=== PATIENT | male | born 1965 | race Caucasian/White ===

== ENCOUNTER 2019-10-04 16:11 | Inpatient (IN) ==
--- NOTE | 2019-10-04 16:43 | Emergency Department Note ---
History of Present Illness General Chief complaint: Shortness of Breath/Dyspnea Stated complaint: SOB Time Seen by Provider: 10/04/19 16:17 Source: patient Mode of arrival: ambulatory Limitations: no limitations History of Present Illness Provider complaint: shortness of breath, left chest pain Onset (ago): week(s) Location: chest Radiation: non-radiation Severity: moderate Pain Consistency: + colicky Current Pain Intensity: 0 Quality: + dull Relieved By: + rest Exacerbated By: + movement and + other (supine position) Associated symptoms: no cough, no fever/chills, no nausea/vomiting and no syncope Treatments prior to arrival: none This is a 54-year-old male who presents with approximately 6 weeks of worsening shortness of breath and left chest wall pressure. Patient states he is most suspicious for a PE as he has had these previously and is currently not taking his previously prescribed anticoagulation. Patient states in 2016 he stopped taking all of his medications as he could no longer afford them once he was no longer working and lost his health insurance. States he does take aspirin daily to try and help prevent recurrent blood clots. Patient states he has had both DVT and PEs previously. Patient states he is also noted left lower extremity edema as well as pain to the distal posterior left lower extremity. Patient denies any recent falls or trauma. No other change in diet. Patient did recently quit smoking in July per his report. Patient also admits to seasonal allergies which contribute to cough. Patient denies any change in sputum or frequency of cough. Denies fevers or chills. States his symptoms are worse with exertion or lying flat. States when he lays flat he feels like he is "drowning" and feels a sense of pressure across his chest. Patient states when sitting upright he does not have acute pain in the left chest unless it is being palpated. Patient denies any known exposure to a coronavirus positive individual. Pt seen during a time of high acuity and national emergency pandemic while wearing PPE. Home Medications Home Medications Medication Instructions Recorded Confirmed Type Centrum Silver Men 1 tab PO DAILY 10/04/19 10/04/19 History fexofenadine [Corinne Allergy] 180 mg PO DAILY 10/04/19 10/04/19 History amlodipine [Norvasc] 5 mg PO QAM 30 Days #30 tab 10/06/19 Rx apixaban [Eliquis] 5 mg PO BID #60 tab 10/06/19 Rx atorvastatin [Lipitor] 10 mg PO DAILY #30 tab 10/06/19 Rx losartan 25 mg PO QAM 30 Days #30 tab 10/06/19 Rx oxycodone 5 mg PO Q4 PRN #12 tab 10/06/19 Rx Allergies Allergy/AdvReac Type Severity Reaction Status Date / Time bee venom protein (honey bee) Allergy Severe Anaphylaxis Verified 10/04/19 17:03 Penicillins Allergy Severe SEE Verified 10/04/19 17:03 COMMENT-HAPPENED A CHILD pollen extracts Allergy Severe CONGESTION, Verified 10/04/19 17:03 SOB OPIOIDS AdvReac Severe VIOLENT Uncoded 10/04/19 17:03 VOMITTING-IF SMALL DOSE SOMETIMES OK. 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 and A total of 10 systems reviewed and were otherwise negative Physical Exam Vital Signs Vital Signs - 24 hr 10/04/19 16:15 10/04/19 16:23 10/04/19 17:28 Temperature 37.3 C Temperature Source Oral Pulse Rate 53 L 53 L 48 L Pulse Rate [Apical] Pulse Rate from SpO2 Sensor 53 L Pulse Rhythm Regular Respiratory Rate 25 H 16 14 Respiratory Effort / Characteristics Non-Labored Spontaneous Respiratory Depth Normal Respiratory Pattern Regular Blood Pressure 181/68 H 181/68 H 171/71 H Blood Pressure [Right Arm] Blood Pressure Mean 115 105 98 Blood Pressure Mean [Right Arm] Pulse Oximetry 96 96 96 Oxygen Delivery Method Room Air Room Air Room Air Sepsis Recent Fever Within 48 Hours No Sepsis New/Unexplained Change in Mental Status No Sepsis Action Taken by Nursing No Action Required 10/04/19 18:51 10/04/19 20:21 10/04/19 21:02 Temperature Temperature Source Pulse Rate 50 L Pulse Rate [Apical] 45 L 45 L Pulse Rate from SpO2 Sensor 50 L Pulse Rhythm Respiratory Rate 18 14 20 Respiratory Effort / Characteristics Non-Labored Non-Labored Spontaneous Respiratory Depth Normal Respiratory Pattern Blood Pressure 213/77 H Blood Pressure [Right Arm] 154/59 H Blood Pressure Mean 115 Blood Pressure Mean [Right Arm] 90 Pulse Oximetry 95 99 98 Oxygen Delivery Method Room Air Room Air Sepsis Recent Fever Within 48 Hours Sepsis New/Unexplained Change in Mental Status Sepsis Action Taken by Nursing 10/04/19 21:03 10/04/19 21:09 10/04/19 21:30 Temperature Temperature Source Pulse Rate 49 L 64 Pulse Rate [Apical] Pulse Rate from SpO2 Sensor 49 L 47 L Pulse Rhythm Respiratory Rate 20 20 Respiratory Effort / Characteristics Respiratory Depth Respiratory Pattern Blood Pressure Blood Pressure [Right Arm] Blood Pressure Mean Blood Pressure Mean [Right Arm] Pulse Oximetry 100 100 Oxygen Delivery Method Room Air Sepsis Recent Fever Within 48 Hours Sepsis New/Unexplained Change in Mental Status Sepsis Action Taken by Nursing 10/04/19 23:15 Temperature Temperature Source Pulse Rate Pulse Rate [Apical] 46 L Pulse Rate from SpO2 Sensor Pulse Rhythm Respiratory Rate 20 Respiratory Effort / Characteristics Respiratory Depth Respiratory Pattern Blood Pressure Blood Pressure [Right Arm] 171/88 H Blood Pressure Mean Blood Pressure Mean [Right Arm] 115 Pulse Oximetry 96 Oxygen Delivery Method Room Air Sepsis Recent Fever Within 48 Hours Sepsis New/Unexplained Change in Mental Status Sepsis Action Taken by Nursing GENERAL: alert, well appearing, well nourished, no distress, non-toxic, morbidly obese EYE EXAM: normal conjunctiva, PERRL and EOM's grossly intact OROPHARYNX: no exudate, no erythema, lips, buccal mucosa, and tongue normal and mucous membranes are moist NECK: supple, no nuchal rigidity, no adenopathy, non-tender LUNGS: Clear but decreased to auscultation. Normal chest wall mechanics, no w/r/r HEART: no murmurs, S1 normal and S2 normal, pain with palpation along left chest wall, no crepitus, no ecchymosis or overlying rash ABDOMEN: abdomen soft, non-tender, normo-active bowel sounds, no masses, no rebound or guarding. BACK: Back is symmetrical on inspection and there is no deformity, no midline tenderness, no CVA tenderness. SKIN: no rashes and no bruising UPPER EXTREMITIES: upper extremities are grossly normal. FROM, nml pulses b/l. LOWER EXTREMITIES: Bilateral lower extremity pitting edema, left greater than right. FROM, nml pulses b/l. Pain with palpation over the distal aspect of the Achilles tendon just superior to the calcaneus, no overlying erythema or ecchymosis, no petechiae NEURO EXAM: Normal sensorium, cranial nerves II-XII grossly intact, normal speech, no gross weakness of arms, no gross weakness of legs. Gross sensation intact. Course Course 2021: Patient updated on results. Patient states he does still feel pressure with lying flat when he was in the CT scanner and this makes him more tachypneic. Patient states he has tried to get up and use the restroom and with exertion he feels more shortness of breath and increased pressure. I also discussed his bradycardia. Pt states his HR according to his apple watch is usually in the 70's/80's. No hx of dysrhythmia. I attempted to print out rhythm strip to evaluate for heart block but strip I had wasn't convincing. 6: Patient states no change after DuoNeb. Patient states he still felt markedly tachypneic with increased pressure with the ambulatory pulse ox trial. Patient was not hypoxic during this event. 2250: Case discussed with Dr. Calixto for additional evaluation. Administered Medications Discontinued Medications Al Hydrox/Mg Hydrox/Simethicone () 1 dose PO ONE ONE Stop: 10/04/19 23:39 Last Admin: 10/04/19 23:58 Dose: 1 dose Documented by: [id number] Albuterol (Duoneb) 3 ml NEB NOW STA Stop: 10/04/19 20:04 Last Admin: 10/04/19 20:20 Dose: 3 ml Documented by: [id number] Amlodipine Besylate (Norvasc) 5 mg PO NOW ONE Stop: 10/05/19 17:01 Last Admin: 10/05/19 17:17 Dose: 5 mg Documented by: [id number] Amlodipine [facility] ([facility]asc) [facility] [place] Stop: 11/05/19 08:59 Last Admin: 10/06/19 08:00 Dose: 5 mg Documented by: [id number] Bacitracin (Bacitracin) Confirm Administered Dose 50,000 units .ROUTE .STK-MED ONE Stop: 10/05/19 12:42 Last Admin: 10/05/19 13:30 Dose: 50,000 units Documented by: [id number] Bupivacaine HCl (Sensorcaine 0.25% Inj) Confirm Administered Dose 30 ml .ROUTE .STK-MED ONE Stop: 10/05/19 12:42 Last Admin: 10/05/19 13:31 Dose: 30 ml Documented by: [id number] Bupivacaine HCl (Sensorcaine 0.25% Inj) Confirm Administered Dose 30 ml .ROUTE .ST-MED ONE Stop: 10/05/19 13:32 Last Admin: 10/05/19 13:43 Dose: 30 ml Documented by: [id number] Cefazolin Sodium (Ancef) Confirm Administered Dose 3,000 mg .ROUTE .STK-MED ONE Stop: 10/05/19 13:07 Last Admin: 10/05/19 13:31 Dose: 3,000 mg Documented by: [id number] Clindamycin Phosphate (Cleocin) Confirm Administered Dose 600 mg .ROUTE .STK-MED ONE Stop: 10/05/19 12:56 Last Admin: 10/05/19 13:31 Dose: Not Given Documented by: [id number] Fentanyl Citrate (Fentanyl Citrate) Confirm Administered Dose 100 mcg .ROUTE .[facility]-MED ONE Stop: 10/05/19 13:06 Last Admin: 10/05/19 13:31 Dose: 100 mcg Documented by: [id number] Fentanyl Citrate (Fentanyl Citrate) Confirm Administered Dose 100 mcg .ROUTE .[facility]-MED ONE Stop: 10/05/19 13:34 Last Increment: 10/05/19 13:54 Dose: 75 mcg Documented by: [id number] Heparin Sodium/Dextrose (Heparin Sodium/Dextrose) Confirm Administered Dose 25,000 units IV .[facility]-MED ONE Stop: 10/05/19 00:20 Last Admin: 10/05/19 00:21 Dose: 2,100 units Documented by: [id number] Cosigned by: [id number] Hydralazine HCl (Hydralazine Hcl) 10 mg IV NOW STA Stop: 10/04/19 22:56 Last Admin: 10/04/19 23:14 Dose: 10 mg Documented by: [id number] Heparin Sodium/Dextrose (Heparin Sodium/Dextrose) 25,000 units in 500 mls @ 0 mls/hr IV .Q0M KRISHAN; Protocol Stop: 11/04/19 00:59 Last Admin: 10/05/19 19:49 Dose: Not Given Documented by: [id number] Titration: 10/05/19 12:56 Dose: 0 units/hr, 0 mls/hr Documented by: [id number] Cosigned by: [id number] Titration: 10/05/19 12:56 Dose: 0 units/hr, 0 mls/hr Documented by: [id number] Cosigned by: [id number] Admin: 10/05/19 11:21 Dose: 2,350 units/hr, 47 mls/hr Documented by: [id number] Cosigned by: [id number] Titration: 10/05/19 11:21 Dose: 2,350 units/hr, 47 mls/hr Documented by: [id number] Cosigned by: [id number] Titration: 10/05/19 04:16 Dose: 2,350 units/hr, 47 mls/hr Documented by: [id number] Cosigned by: [id number] Admin: 10/05/19 01:41 Dose: 2,100 units/hr, 42 mls/hr Documented by: [id number] Cosigned by: [id number] Pantoprazole Sodium 40 mg/ (Syringe) 10 mls @ 5 mls/min IV DAILY@1100 KRISHAN Stop: 11/04/19 10:59 Last Admin: 10/06/19 11:18 Dose: 5 mls/min Documented by: [id number] Admin: 10/05/19 11:13 Dose: 5 mls/min Documented by: [id number] Heparin Sodium (Porcine) 5,000 (units/ Syringe) 5 mls @ 10 mls/min IV ONE ONE Stop: 10/05/19 04:16 Last Admin: 10/05/19 04:47 Dose: 10 mls/min Documented by: [id number] Cosigned by: [id number] Cefazolin Sodium (Ancef 1000mg) 1,000 mg in 7.5 mls @ 2.5 mls/min IV Q8H KRISHAN; Protocol Stop: 10/06/19 21:44 Last Admin: 10/06/19 15:25 Dose: 2.5 mls/min Documented by: [id number] Admin: 10/06/19 05:24 Dose: 2.5 mls/min Documented by: [id number] Admin: 10/05/19 20:58 Dose: 2.5 mls/min Documented by: [id number] Ioversol (Optiray 320 125ml) 119 ml IV ONCE PRN PRN Reason: Interaction Checking Stop: 10/08/19 19:22 Last Admin: 10/04/19 19:26 Dose: 119 ml Documented by: [id number] Lidocaine HCl (Xylocaine 1% (Local)) Confirm Administered Dose 20 ml .ROUTE .STK-MED ONE Stop: 10/05/19 12:42 Last Admin: 10/05/19 13:31 Dose: 20 ml Documented by: [id number] Lidocaine HCl (Xylocaine 1% (Local)) Confirm Administered Dose 20 ml .ROUTE .STK-MED ONE Stop: 10/05/19 13:32 Last Admin: 10/05/19 13:43 Dose: 20 ml Documented by: [id number] Losartan Potassium (Cozaar) 25 mg PO QAM KRISHAN Stop: 11/05/19 10:29 Last Admin: 10/06/19 11:17 Dose: 25 mg Documented by: [id number] Midazolam HCl (Versed) Confirm Administered Dose 5 mg .ROUTE .STK-MED ONE Stop: 10/05/19 13:06 Last Admin: 10/05/19 13:31 Dose: 5 mg Documented by: [id number] Midazolam HCl (Versed) Confirm Administered Dose 5 mg .ROUTE .STK-MED ONE Stop: 10/05/19 13:34 Last Admin: 10/05/19 13:59 Dose: Not Given Documented by: [id number] Oxycodone HCl (Roxicodone Immediate Rel) 5 mg PO Q4 PRN PRN Reason: Pain Stop: 10/19/19 16:44 Last Admin: 10/06/19 11:18 Dose: 5 mg Documented by: [id number] Admin: 10/06/19 04:04 Dose: 5 mg Documented by: [id number] Admin: 10/05/19 22:52 Dose: 5 mg Documented by: [id number] Perflutren Lipid Microsphere (Definity) 2 ml IV ONCE ONE Stop: 10/05/19 08:11 Last Admin: 10/05/19 08:10 Dose: 2 ml Documented by: [id number] Medical Decision Making Differential Diagnosis Differential diagnoses includes but is not limited to pneumonia, bronchitis, COPD/Asthma exacerbation, pneumothorax, pulmonary embolism, congestive heart failure, acute coronary syndrome Medical Records Attestation: I reviewed the patient's medical records. Home Medications Current Medication List: was personally reviewed by me Laboratory Data Attestation: I reviewed the patient's lab results. Result diagrams: 10/05/19 03:46 10/06/19 07:00 Lab Results 10/04/19 10/04/19 10/04/19 Range/Units 16:53 16:53 16:53 WBC 7.68 (4.8-10.8) K/uL RBC 4.68 L (4.7-6.1) M/uL Hgb 14.2 (14.0-18.0) g/dL Hct 42.7 (42-52) % MCV 91.2 (80-100) fL MCH 30.3 (25-34) pg MCHC 33.3 (32-36) g/dL RDW Std Deviation 44.2 (36.4-46.3) fL RDW Coeff of Karen 13.4 (11.5-14.5) % Plt Count 226 (130-400) K/uL MPV 10.6 H (7.4-10.4) fL Immature Gran % (Auto) 0.8 % Neut % (Auto) 74.2 % Lymph % (Auto) 14.2 % Hardin % (Auto) 8.2 % Eos % (Auto) 2.1 % Baso % (Auto) 0.5 % Immature Gran # (Auto) 0.06 H (0.00-0.02) K/uL Neut # (Auto) 5.70 (1.4-6.5) K/uL Lymph # (Auto) 1.09 L (1.2-3.4) K/uL Hardin # (Auto) 0.63 H (0.11-0.59) K/uL Eos # (Auto) 0.16 (0-0.5) K/uL Baso # (Auto) 0.04 (0-0.2) K/uL APTT (21.0-31.0) Seconds PTT Ratio D-Dimer 750 H* (0-500) ug/L FEU Sodium 144 (136-145) mmol/L Potassium 4.1 (3.5-5.1) mmol/L Chloride 110 H (98-107) mmol/L Carbon Dioxide 25 (21-32) mmol/L Anion Gap 9.0 (3-11) BUN 16 (7-18) mg/dl Creatinine 1.33 (0.6-1.4) mg/dl Est Cr Clr Drug Dosing 107.5 ml/min Est GFR ( Amer) 70.7 Est GFR (Non-Af Amer) 61.0 BUN/Creatinine Ratio 12.2 (10-20) Glucose 123 H (70-99) mg/dl Estimat Average Glucose mg/dl Hemoglobin A1c (4.5-5.6) % Calcium 8.4 L (8.5-10.1) mg/dl Magnesium 1.9 (1.8-2.4) mg/dl Total Bilirubin 0.4 (0.2-1) mg/dl AST 13 L (15-37) U/L ALT 31 (12-78) U/L Alkaline Phosphatase 69 (45-117) U/L Troponin I < 0.015 (0-0.045) ng/ml NT-Pro-B Natriuret Pep 1283 H (0-900) pg/ml Total Protein 6.7 (6.4-8.2) gm/dl Albumin 3.2 L (3.4-5.0) gm/dl Globulin 3.5 (2.5-4.0) gm/dl Albumin/Globulin Ratio 0.9 (0.9-2) Triglycerides (0-150) mg/dl Cholesterol (0-200) mg/dl LDL Cholesterol, Calc mg/dl VLDL Cholesterol, Calc mg/dl HDL Cholesterol mg/dl Cholesterol/HDL Ratio Lipase 148 (73-393) U/L Salicylates (2.8-20) mg/dl Lyme Disease IgG Ab (Negative) Lyme Disease IgM Ab (Negative) 10/04/19 10/04/19 10/05/19 Range/Units 19:50 23:40 03:46 WBC 9.89 (4.8-10.8) K/uL RBC 4.70 (4.7-6.1) M/uL Hgb 14.2 (14.0-18.0) g/dL Hct 42.6 (42-52) % MCV 90.6 (80-100) fL MCH 30.2 (25-34) pg MCHC 33.3 (32-36) g/dL RDW Std Deviation 44.3 (36.4-46.3) fL RDW Coeff of Karen 13.5 (11.5-14.5) % Plt Count 252 (130-400) K/uL MPV 10.8 H (7.4-10.4) fL Immature Gran % (Auto) 0.5 % Neut % (Auto) 69.7 % Lymph % (Auto) 20.7 % Hardin % (Auto) 7.1 % Eos % (Auto) 1.5 % Baso % (Auto) 0.5 % Immature Gran # (Auto) 0.05 H (0.00-0.02) K/uL Neut # (Auto) 6.89 H (1.4-6.5) K/uL Lymph # (Auto) 2.05 (1.2-3.4) K/uL Hardin # (Auto) 0.70 H (0.11-0.59) K/uL Eos # (Auto) 0.15 (0-0.5) K/uL Baso # (Auto) 0.05 (0-0.2) K/uL APTT (21.0-31.0) Seconds PTT Ratio D-Dimer (0-500) ug/L FEU Sodium (136-145) mmol/L Potassium (3.5-5.1) mmol/L Chloride (98-107) mmol/L Carbon Dioxide (21-32) mmol/L Anion Gap (3-11) BUN (7-18) mg/dl Creatinine (0.6-1.4) mg/dl Est Cr Clr Drug Dosing ml/min Est GFR ( Amer) Est GFR (Non-Af Amer) BUN/Creatinine Ratio (10-20) Glucose (70-99) mg/dl Estimat Average Glucose mg/dl Hemoglobin A1c (4.5-5.6) % Calcium (8.5-10.1) mg/dl Magnesium (1.8-2.4) mg/dl Total Bilirubin (0.2-1) mg/dl AST (15-37) U/L ALT (12-78) U/L Alkaline Phosphatase (45-117) U/L Troponin I < 0.015 (0-0.045) ng/ml NT-Pro-B Natriuret Pep (0-900) pg/ml Total Protein (6.4-8.2) gm/dl Albumin (3.4-5.0) gm/dl Globulin (2.5-4.0) gm/dl Albumin/Globulin Ratio (0.9-2) Triglycerides (0-150) mg/dl Cholesterol (0-200) mg/dl LDL Cholesterol, Calc mg/dl VLDL Cholesterol, Calc mg/dl HDL Cholesterol mg/dl Cholesterol/HDL Ratio Lipase (73-393) U/L Salicylates < 1.7 L (2.8-20) mg/dl Lyme Disease IgG Ab (Negative) Lyme Disease IgM Ab (Negative) 10/05/19 10/05/19 10/05/19 Range/Units 03:46 03:46 03:46 WBC (4.8-10.8) K/uL RBC (4.7-6.1) M/uL Hgb (14.0-18.0) g/dL Hct (42-52) % MCV (80-100) fL MCH (25-34) pg MCHC (32-36) g/dL RDW Std Deviation (36.4-46.3) fL RDW Coeff of Karen (11.5-14.5) % Plt Count (130-400) K/uL MPV (7.4-10.4) fL Immature Gran % (Auto) % Neut % (Auto) % Lymph % (Auto) % Hardin % (Auto) % Eos % (Auto) % Baso % (Auto) % Immature Gran # (Auto) (0.00-0.02) K/uL Neut # (Auto) (1.4-6.5) K/uL Lymph # (Auto) (1.2-3.4) K/uL Hardin # (Auto) (0.11-0.59) K/uL Eos # (Auto) (0-0.5) K/uL Baso # (Auto) (0-0.2) K/uL APTT 42.9 H (21.0-31.0) Seconds PTT Ratio 1.5 D-Dimer (0-500) ug/L FEU Sodium 143 (136-145) mmol/L Potassium (3.5-5.1) mmol/L Chloride 109 H (98-107) mmol/L Carbon Dioxide 27 (21-32) mmol/L Anion Gap 7.0 (3-11) BUN 12 (7-18) mg/dl Creatinine 1.19 (0.6-1.4) mg/dl Est Cr Clr Drug Dosing 119.4 ml/min Est GFR ( Amer) 80.9 Est GFR (Non-Af Amer) 69.8 BUN/Creatinine Ratio 10.3 (10-20) Glucose 110 H (70-99) mg/dl Estimat Average Glucose 143 mg/dl Hemoglobin A1c 6.6 H (4.5-5.6) % Calcium 8.8 (8.5-10.1) mg/dl Magnesium (1.8-2.4) mg/dl Total Bilirubin (0.2-1) mg/dl AST (15-37) U/L ALT (12-78) U/L Alkaline Phosphatase (45-117) U/L Troponin I (0-0.045) ng/ml NT-Pro-B Natriuret Pep (0-900) pg/ml Total Protein (6.4-8.2) gm/dl Albumin (3.4-5.0) gm/dl Globulin (2.5-4.0) gm/dl Albumin/Globulin Ratio (0.9-2) Triglycerides 163 H (0-150) mg/dl Cholesterol 230 H (0-200) mg/dl LDL Cholesterol, Calc 164 mg/dl VLDL Cholesterol, Calc 33 mg/dl HDL Cholesterol 33 mg/dl Cholesterol/HDL Ratio 7 Lipase (73-393) U/L Salicylates (2.8-20) mg/dl Lyme Disease IgG Ab (Negative) Lyme Disease IgM Ab (Negative) 10/05/19 10/05/19 10/05/19 Range/Units 05:57 10:44 10:44 WBC (4.8-10.8) K/uL RBC (4.7-6.1) M/uL Hgb (14.0-18.0) g/dL Hct (42-52) % MCV (80-100) fL MCH (25-34) pg MCHC (32-36) g/dL RDW Std Deviation (36.4-46.3) fL RDW Coeff of Karen (11.5-14.5) % Plt Count (130-400) K/uL MPV (7.4-10.4) fL Immature Gran % (Auto) % Neut % (Auto) % Lymph % (Auto) % Hardin % (Auto) % Eos % (Auto) % Baso % (Auto) % Immature Gran # (Auto) (0.00-0.02) K/uL Neut # (Auto) (1.4-6.5) K/uL Lymph # (Auto) (1.2-3.4) K/uL Hardin # (Auto) (0.11-0.59) K/uL Eos # (Auto) (0-0.5) K/uL Baso # (Auto) (0-0.2) K/uL APTT 58.8 H* (21.0-31.0) Seconds PTT Ratio 2.1 D-Dimer (0-500) ug/L FEU Sodium (136-145) mmol/L Potassium 3.9 (3.5-5.1) mmol/L Chloride (98-107) mmol/L Carbon Dioxide (21-32) mmol/L Anion Gap (3-11) BUN (7-18) mg/dl Creatinine (0.6-1.4) mg/dl Est Cr Clr Drug Dosing ml/min Est GFR ( Amer) Est GFR (Non-Af Amer) BUN/Creatinine Ratio (10-20) Glucose (70-99) mg/dl Estimat Average Glucose mg/dl Hemoglobin A1c (4.5-5.6) % Calcium (8.5-10.1) mg/dl Magnesium (1.8-2.4) mg/dl Total Bilirubin (0.2-1) mg/dl AST (15-37) U/L ALT (12-78) U/L Alkaline Phosphatase (45-117) U/L Troponin I < 0.015 (0-0.045) ng/ml NT-Pro-B Natriuret Pep (0-900) pg/ml Total Protein (6.4-8.2) gm/dl Albumin (3.4-5.0) gm/dl Globulin (2.5-4.0) gm/dl Albumin/Globulin Ratio (0.9-2) Triglycerides (0-150) mg/dl Cholesterol (0-200) mg/dl LDL Cholesterol, Calc mg/dl VLDL Cholesterol, Calc mg/dl HDL Cholesterol mg/dl Cholesterol/HDL Ratio Lipase (73-393) U/L Salicylates (2.8-20) mg/dl Lyme Disease IgG Ab Negative (Negative) Lyme Disease IgM Ab Negative (Negative) Imaging Data Radiologist's Impression: XR chest 1V portable HISTORY: 54 years-old Male sob, left cp acute atypical chest pain with shortness of breath COMPARISON: None TECHNIQUE: Portable AP view of the chest FINDINGS: Cardiac silhouette is mildly enlarged. Minimal linear left lung base densities suggest atelectasis. There is no pneumothorax, large pleural effusion or overt pulmonary edema. Bones appear grossly intact. Indeterminate catheter projects over the right lower neck and medial upper chest, possibly within the internal jugular vein. IMPRESSION: 1. Cardiomegaly without acute process. 2. Catheter of the right neck and upper chest is noted with distal tip terminating in the expected location of the inferior right internal jugular vein. ACT 112: Negative or not required by law. The above report was generated using voice recognition software. It may contain grammatical, syntax or spelling errors. Electronically signed by: Easton Israel M.D. 10/04/2019 4:59 PM US venous doppler LE LT HISTORY: 54 years-old Male edema, hx dvt acute pain and swelling of the left lower extremity COMPARISON: None TECHNIQUE: Multiple real-time sonographic images of the left lower extremity deep venous structures were obtained assessing grayscale appearance, color and spectral flow FINDINGS: Limited study secondary to patient body habitus and subcutaneous edema. The posterior tibial and peroneal veins are not visualized. Normal flow, compressibility, phasicity and augmentation of the visualized deep venous structures. IMPRESSION: Limited exam as above. No sonographic evidence of deep venous thrombosis. ACT 112: Negative or not required by law. The above report was generated using voice recognition software. It may contain grammatical, syntax or spelling errors. Electronically signed by: Easton Israel M.D. 10/04/2019 6:[address] angio chest PE protocol CT DOSE: 1152.19 mGy.cm HISTORY: 54 years-old Male with PE. Acute shortness of breath TECHNIQUE: Multiple CTA images of the chest were obtained after the intravenous administration of 119 ml Optiray 320. Coronal and sagittal MIPS were obtained from the axial data set and were submitted for review. All measurements were obtained according to NASCET criteria. A dose lowering technique was utilized adhering to the principles of ALARA. COMPARISON: Chest radiograph and duplex venous Doppler study of same day FINDINGS: CTA: Heart is upper limits of normal in size. Moderate coronary artery calci fications. Suboptimal evaluation of the left heart structures secondary to contrast bolus timing. No thoracic aortic aneurysm or dissection identified. The pulmonary arterial tree is opacified to level of the segmental branches and demonstrates no filling defects to suggest pulmonary thromboembolic disease. CT CHEST: Unremarkable thyroid. Enlarged tracheoesophageal recess lymph nodes measure up to 1.1 x 1.7 cm. Mildly enlarged right hilar and subcarinal lymph nodes measure up to 10 mm. No pneumothorax or pleural effusion. No airspace consolidation typical for pneumonia. 3 mm fissural nodule left upper lung, image 185 series 4 is likely benign. 6 mm solid nodule of the inferior segment lingula, image 78 series 4. Central airways appear patent. No acute processes of the imaged upper abdomen. Hepatic steatosis. Gynecomastia. Degenerative changes of the shoulders and spine. IMPRESSION: 1. No evidence of pulmonary thromboembolic disease. 2. No pleural effusion or airspace consolidation typical for pneumonia. 3. Mild nonspecific mediastinal and hilar adenopathy. 4. 6 mm solid nodule of the inferior segment lingula. Follow-up guidelines provided below. 5. Hepatic steatosis. 6. Moderate coronary artery calcifications. Please refer to below summary of Fleischner criteria recommendations for follow- up of incidental CT nodules (Gilberto Curtis, Guidelines for management of small pulmonary nodules detected on CT scans: A statement from the Fleischner Society, Radiology 237: [phone].) SOLID NODULES Solitary nodule size: <6 mm * Low risk patients: no follow-up needed * high risk patients: optional CT at 12 months Solitary nodule size: 6-8 mm * Low risk patients: follow-up at 6-12 months, then consider further follow-up at 18-24 months * high risk patients: initial follow-up CT at 6-12 months and then at 18-24 months if no change Solitary nodule size: >8 mm * either low or high risk patients - consider follow-up CT at 3 months, and/or CT-PET, and/or biopsy Multiple nodules size: <6 mm * Low risk patients: no routine follow-up * high risk patients: optional CT at 12 months Multiple nodules size: 6-8 mm * Low risk patients: follow-up at 3-6 months, then consider further follow-up at 18-24 months * high risk patients: follow-up at 3-6 months, then at 18-24 months if no change Multiple nodules size: >8 mm * Low risk patients: follow-up at 3-6 months, then consider further follow-up at 18-24 months * high risk patients: follow-up at 3-6 months, then at 18-24 months if no change Note: newly detected indeterminate nodule in persons 35 years of age or older. * Low risk patients: minimal or absent history of smoking and/or other known risk factors * high risk patients: history of smoking or of other known risk factors (e.g. first degree relative with lung cancer, or exposure to asbestos, radon, uranium) * if a nodule up to 8 mm is partly solid or is ground glass further follow-up is required after 24 months to exclude possible slow growing adenocarcinoma (MAGUE) ACT 112: Negative or not required by law. The above report was generated using voice recognition software. It may contain grammatical, syntax or spelling errors. Electronically signed by: Easton Israel M.D. 10/04/2019 7:40 PM ECG Data Attestation: I personally reviewed and interpreted this ECG as follows: Indication: + chest pain Rate (beats per minute): 53 Rhythm: + normal sinus ECG Intervals/blocks: + First degree AV block and + Normal QT-c ECG [place]: + Normal ECG ST segments: + Nonspecific ST abnormalities Blood Pressure Blood Pressure Findings: Elevated blood pressure Blood Pressure Disposition: further management by hospitalist MDM Narrative Pt here with c/o cp and sob and most concerned about dvt/pe. Labs were sent and were reassuring with negative trop. US LE b/l were negative and CT angio chest was reassuring also. Mild elevation of BNP, however no overt evidence of CHF. Pt was noted to be more bradycardic than he reports is normal for him. Concern for possible symptomatic bradycardia vs evolving heart block. Given risk factors for ACS, also concern for underlying CAD contributing to symptoms being worse with exertion. I discussed with him chest pain could also be related to GERD/gastritis from significant ASA use. We discussed possibly trying GI meds in addition. Given risk factors, need for additional tele monitoring and cardiology evaluation, case discussed with hospitalist for additional evaluation. Patient has a family history of dvt/pe. Patient was first seen and observation began at 1617 and was necessary in order to determine etiology of chest pain/dyspnea and rule out life threatening causes. Upon re-evaluation, 5 hours of observation revealed that the patient could be admitted. Discharge time at 2250. An order was placed for continuous cardiac monitoring. The monitor shows a rate of 50 with bradycardic rhythm. Impression & Plan Chest pain, Hypertension, Morbid obesity, Acute dyspnea, Bradycardia Discharge Plan Visit Data *Final* Discharge Date/Time: 10/05/19 00:42 Chief Complaint: Shortness of Breath/Dyspnea Stated Complaint: SOB ED Provider: Dayanna Alvarez Discharge Problem: Chest pain, Hypertension, Morbid obesity, Acute dyspnea, Bradycardia Patient Disposition: Admitted As Inpatient Condition: Good Discharge Instructions Interventions: ED Discharge Assessment Last Done: 10/05/19 00:42 Discharge Problem: Chest pain Qualifiers: Chest pain type: unspecified Qualified Code(s): R07.9 - Chest pain, unspecified Hypertension Qualifiers: Hypertension type: essential hypertension Qualified Code(s): I10 - Essential (primary) hypertension
--- NOTE | 2019-10-04 17:01 | XRay Report ---
XR chest 1V portable HISTORY: 54 years-old Male sob, left cp acute atypical chest pain with shortness of breath COMPARISON: None TECHNIQUE: Portable AP view of the chest FINDINGS: Cardiac silhouette is mildly enlarged. Minimal linear left lung base densities suggest atelectasis. T here is no pneumothorax, large pleural effusion or overt pulmonary edema. Bones appear grossly intact . Indeterminate catheter projects over the right lower neck and medial upper chest, possibly within t he internal jugular vein. IMPRESSION: 1. Cardiomegaly without acute process. 2. Catheter of the right neck and upper chest is noted with distal tip terminating in the expected lo cation of the inferior right internal jugular vein. ACT 112: Negative or not required by law. The above report was generated using voice recognition software. It may contain grammatical, syntax o r spelling errors. Electronically signed by: Easton Israel M.D. 10/04/2019 4:59 PM
[2019-10-04 17:13] LABS: Basophils # (auto) 0.04 K/uL (0-0.2); Basophils % (auto) 0.5 %; Eosinophils # (auto) 0.16 K/uL (0-0.5); Eosinophils % (auto) 2.1 %; Hematocrit (blood only) 42.7 % (42-52); Hemoglobin 14.2 g/dL (14.0-18.0); Immature Granulocytes # (auto) 0.06 K/uL (0.00-0.02); Immature Granulocytes % (auto) 0.8 %; Lymphocytes # (auto) 1.09 K/uL (1.2-3.4); Lymphocytes % (auto) 14.2 %; Mean Corpuscular Hemoglobin 30.3 pg (25-34); Mean Corpuscular Hgb Conc 33.3 g/dL (32-36); Mean Corpuscular Volume 91.2 fL (80-100); Mean Platelet Volume 10.6 fL (7.4-10.4); Monocytes # (auto) 0.63 K/uL (0.11-0.59); Monocytes % (auto) 8.2 %; Neutrophils % (auto) 74.2 %; Platelet Count 226 K/uL (130-400); RDW Coefficient of Variation 13.4 % (11.5-14.5); RDW Standard Deviation 44.2 fL (36.4-46.3); Red Blood Count 4.68 M/uL (4.7-6.1); White Blood Count 7.68 K/uL (4.8-10.8)
[2019-10-04 17:31] LABS: Alanine Aminotransferase 31 U/L (12-78); Albumin Level 3.2 gm/dl (3.4-5.0); Aspartate Aminotransferase 13 U/L (15-37); BUN Creatinine Ratio 12.2 (10-20); Blood Urea Nitrogen 16 mg/dl (7-18); Calcium 8.4 mg/dl (8.5-10.1); Carbon Dioxide 25 mmol/L (21-32); Chloride 110 mmol/L (98-107); Creatinine Clr Calc Pharmacy 107.5 ml/min; Est GFR (African American) 70.7; Glucose 123 mg/dl (70-99); Lipase 148 U/L (73-393); Magnesium 1.9 mg/dl (1.8-2.4); Potassium 4.1 mmol/L (3.5-5.1); Sodium 144 mmol/L (136-145)
[2019-10-04 17:36] LABS: Albumin Globulin Ratio 0.9 (0.9-2); Alkaline Phosphatase 69 U/L (45-117); Bilirubin,Total 0.4 mg/dl (0.2-1); D Dimer 750 ug/L FEU (0-500); Globulin 3.5 gm/dl (2.5-4.0); NT Pro B Type Natriuretic Pept 1283 pg/ml (0-900); Total Protein 6.7 gm/dl (6.4-8.2); Troponin I < 0.015 ng/ml (0-0.045)
--- NOTE | 2019-10-04 18:24 | Ultrasound Report ---
US venous doppler LE LT HISTORY: 54 years-old Male edema, hx dvt acute pain and swelling of the left lower extremity COMPARISON: None TECHNIQUE: Multiple real-time sonographic images of the left lower extremity deep venous structures w ere obtained assessing grayscale appearance, color and spectral flow FINDINGS: Limited study secondary to patient body habitus and subcutaneous edema. The posterior tibial and jignesh travis veins are not visualized. Normal flow, compressibility, phasicity and augmentation of the visual ized deep venous structures. IMPRESSION: Limited exam as above. No sonographic evidence of deep venous thrombosis. ACT 112: Negative or not required by law. The above report was generated using voice recognition software. It may contain grammatical, syntax o r spelling errors. Electronically signed by: Easton Israel M.D. 10/04/2019 6:23 PM
[2019-10-04] MEDS ORDERED: OPTIRAY 320 125ml IV PRN (19:23)
--- NOTE | 2019-10-04 19:41 | CT Scan Report ---
CT angio chest PE protocol CT DOSE: 1152.19 mGy.cm HISTORY: 54 years-old Male with PE. Acute shortness of breath TECHNIQUE: Multiple CTA images of the chest were obtained after the intravenous administration of 119 ml Optiray 320. Coronal and sagittal MIPS were obtained from the axial data set and were submitted for review. All measurements were obtained according to NASCET criteria. A dose lowering technique w as utilized adhering to the principles of ALARA. COMPARISON: Chest radiograph and duplex venous Doppler study of same day FINDINGS: CTA: Heart is upper limits of normal in size. Moderate coronary artery calcifications. Suboptimal evaluati on of the left heart structures secondary to contrast bolus timing. No thoracic aortic aneurysm or di ssection identified. The pulmonary arterial tree is opacified to level of the segmental branches and demonstrates no filling defects to suggest pulmonary thromboembolic disease. CT CHEST: Unremarkable thyroid. Enlarged tracheoesophageal recess lymph nodes measure up to 1.1 x 1.7 cm. Mildl y enlarged right hilar and subcarinal lymph nodes measure up to 10 mm. No pneumothorax or pleural eff usion. No airspace consolidation typical for pneumonia. 3 mm fissural nodule left upper lung, image 1 85 series 4 is likely benign. 6 mm solid nodule of the inferior segment lingula, image 78 series 4. C entral airways appear patent. No acute processes of the imaged upper abdomen. Hepatic steatosis. Gynecomastia. Degenerative changes of the shoulders and spine. IMPRESSION: 1. No evidence of pulmonary thromboembolic disease. 2. No pleural effusion or airspace consolidation typical for pneumonia. 3. Mild nonspecific mediastinal and hilar adenopathy. 4. 6 mm solid nodule of the inferior segment lingula. Follow-up guidelines provided below. 5. Hepatic steatosis. 6. Moderate coronary artery calcifications. Please refer to below summary of Fleischner criteria recommendations for follow-up of incidental CT n odules (Gilberto Curtis, Guidelines for management of small pulmonary nodules detected on CT scans: A sta tement from the Fleischner Society, Radiology 237: [phone].) SOLID NODULES Solitary nodule size: <6 mm * Low risk patients: no follow-up needed * high risk patients: optional CT at 12 months Solitary nodule size: 6-8 mm * Low risk patients: follow-up at 6-12 months, then consider further follow-up at 18-24 months * high risk patients: initial follow-up CT at 6-12 months and then at 18-24 months if no change Solitary nodule size: >8 mm * either low or high risk patients - consider follow-up CT at 3 months, and/or CT-PET, and/or biopsy Multiple nodules size: <6 mm * Low risk patients: no routine follow-up * high risk patients: optional CT at 12 months Multiple nodules size: 6-8 mm * Low risk patients: follow-up at 3-6 months, then consider further follow-up at 18-24 months * high risk patients: follow-up at 3-6 months, then at 18-24 months if no change Multiple nodules size: >8 mm * Low risk patients: follow-up at 3-6 months, then consider further follow-up at 18-24 months * high risk patients: follow-up at 3-6 months, then at 18-24 months if no change Note: newly detected indeterminate nodule in persons 35 years of age or older. * Low risk patients: minimal or absent history of smoking and/or other known risk factors * high risk patients: history of smoking or of other known risk factors (e.g. first degree relative with lung cancer, or exposure to asbestos, radon, uranium) * if a nodule up to 8 mm is partly solid or is ground glass further follow-up is required after 24 m onths to exclude possible slow growing adenocarcinoma (MAGUE) ACT 112: Negative or not required by law. The above report was generated using voice recognition software. It may contain grammatical, syntax o r spelling errors. Electronically signed by: Easton Israel M.D. 10/04/2019 7:40 PM
[2019-10-04] MEDS ORDERED: ALBUT/IPRATROP 3MG/0.5MG NEB 3 ML VIAL NEB STA (20:03)
[2019-10-04] MEDS ORDERED: HydrALAZINE HCL 20 MG/ML VIAL IV STA (22:55)
[2019-10-04] MEDS ORDERED: GI COCKTAIL ED USE PO ONE (23:38)
[2019-10-05] MEDS ORDERED: HEPARIN 25000 UNIT/500 ML D5W IV ONE (00:19)
[2019-10-05] MEDS ORDERED: ONDANSETRON INJ 2 MG/ML 2 ML VIAL IV PRN (01:00)
[2019-10-05] MEDS ORDERED: Heparin IV Standard *NO* Bolus ONE (01:00)
[2019-10-05] MEDS: HEPARIN SODIUM/DEXTROSE 25,000 UNITS/500 ML BAG IV SCH ×3 (01:41→19:49)
--- NOTE | 2019-10-05 02:10 | History & Physical Report ---
Date of Service October 05, 2019 Assessment & Plan (1) Third degree AV block: Trung Singh is a 54 y/o M with PMH significant for HTN, HLD, Factor V Leiden, Pseudotumor cerebri, and bilateral blindness; who presented to the ED following 6 weeks of exertional shortness of breath, and chest pressure. Third degree AV block: - EKG/telemetry strips on admission demonstrated HR 48, no clear relation of p- waves to q-waves - cardiology consulted - TTE ordered - admitted to PCU Chest discomfort: - patient has been taking 900mg of Aspirin daily for the last two years - epigastric tenderness potentially points to gastritis as source of discomfort - GI cocktail given in ED with some relief of discomfort - will start IV protonix - CTA chest: No evidence of pulmonary thromboembolic disease Factor V Leiden: - long-term uncontrolled, previously was on Pradaxa before stopping all medications due to cost - will start Heparin drip - CTA chest: No evidence of pulmonary thromboembolic disease - Venous doppler: No sonographic evidence of deep venous thrombosis. 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 Patient was initially concerns that he had developed a PE as he had these previously when he was initially diagnosed with Factor V Leiden and he is not currently taking his anticoagulation which he stopped taking in 2017, as he could no longer afford them once he was no longer working and lost his health insurance. For the last two years he has been taking three full strength Aspirin to try to prevent development of clots. Patient has noticed that this discomfort is present most days, and has the highest intensity approximately 30 minutes after meals. No known or suspected exposure to COVID-19. Allergies Allergy/AdvReac Type Severity Reaction Status Date / Time bee venom protein (honey bee) Allergy Severe Anaphylaxis Verified 10/04/19 17:03 Penicillins Allergy Severe SEE Verified 10/04/19 17:03 COMMENT-HAPPENED A CHILD pollen extracts Allergy Severe CONGESTION, Verified 10/04/19 17:03 SOB OPIOIDS AdvReac Severe VIOLENT Uncoded 10/04/19 17:03 VOMITTING-IF SMALL DOSE SOMETIMES OK. Home Medications Home Medications Medication Instructions Recorded Confirmed Type aspirin 975 mg PO DAILY 10/04/19 10/04/19 History fexofenadine [Corinne Allergy] 180 mg PO DAILY 10/04/19 10/04/19 History [id number]-lgm-OQ-lycopen-lutein 1 tab PO DAILY 10/04/19 10/04/19 History [Centrum Silver Men] Past Med/Surg History Medical History (Updated 10/05/19 @ 02:59 by Pan Ordonez MD) Factor V Leiden Hypertension Morbid obesity Pseudotumor cerebri Tobacco abuse Social History Preferred Language: Gu[place]ian Tissue Technician Required: No Beliefs That Will Affect Care: None Current Living Situation: Significant Other Other Information That Helps Us Care for You: No Feels Safe at Home: Yes Safety Concerns: Feels Safe At This Time Smoking Status: Former smoker Do You Dip or Chew Tobacco: No ; Smoking End Date: July 2019 ; Second Hand Exposure: No ; Tobacco Cessation Education Requested by Patient: No Hx Alcohol Use: Yes Alcohol type: beer Hx Substance Use: No Review of Systems Review of Systems: All systems reviewed & are unremarkable except as noted in HPI & below Physical Exam Constitutional: WD/WN, vitals as above Eyes: + anicteric sclerae and EOM intact bilaterally; no conjunctival abnormality and no scleral abnormality ENMT: external ear and nose normal, oropharynx normal Neck: normal visual inspection Respiratory: normal respiratory effort, lungs clear to auscultation Cardiovascular: Rate/Rhythm: + bradycardic; + abnormal rate and + abnormal rhythm Heart Sounds: normal S1 and normal S2; no gallop, no murmur and no cardiac rub Vessels: no JVD Gastrointestinal (Abdomen): Inspection/Auscultation: abdomen normal to inspection and normal bowel sounds; abdomen not distended Percussion/Palpation: + abdomen tender (epigastric) and abdomen soft; no guarding Musculoskeletal: Extremities: no cyanosis and no clubbing Skin: no rashes, warm and dry Lymphatic: no cervical or axillary lymphadenopathy Results & Data Results & Data ([facility]) Vital Signs (Past 12 Hours) Vital Signs Temp Pulse Pulse Resp BP BP Pulse Ox 10/05/19 01:57 48 L 10/05/19 01:46 147/66 H 10/05/19 00:41 48 L 20 129/103 H 100 10/04/19 23:57 47 L 20 161/93 H 96 10/04/19 23:15 46 L 20 171/88 H 96 10/04/19 21:30 64 20 100 10/04/19 21:03 49 L 20 100 10/04/19 21:02 50 L 20 213/77 H 98 10/04/19 20:21 45 L 14 99 10/04/19 18:51 45 L 18 154/59 H 95 10/04/19 17:28 48 L 14 171/71 H 96 10/04/19 16:23 37.3 C 53 L 16 181/68 H 96 10/04/19 16:15 53 L 25 H 181/68 H 96 Laboratory Results 10/04/19 10/04/19 10/04/19 Range/Units 23:40 19:50 16:53 WBC (4.8-10.8) K/uL RBC (4.7-6.1) M/uL Hgb (14.0-18.0) g/dL Hct (42-52) % MCV (80-100) fL MCH (25-34) pg MCHC (32-36) g/dL RDW Std Deviation (36.4-46.3) fL RDW Coeff of Karen (11.5-14.5) % Plt Count (130-400) K/uL MPV (7.4-10.4) fL Immature Gran % (Auto) % Neut % (Auto) % Lymph % (Auto) % Mcleod % (Auto) % Eos % (Auto) % Baso % (Auto) % Immature Gran # (Auto) (0.00-0.02) K/uL Neut # (Auto) (1.4-6.5) K/uL Lymph # (Auto) (1.2-3.4) K/uL Mcleod # (Auto) (0.11-0.59) K/uL Eos # (Auto) (0-0.5) K/uL Baso # (Auto) (0-0.2) K/uL D-Dimer (0-500) ug/L FEU Sodium 144 (136-145) mmol/L Potassium 4.1 (3.5-5.1) mmol/L Chloride 110 H (98-107) mmol/L Carbon Dioxide 25 (21-32) mmol/L Anion Gap 9.0 (3-11) BUN 16 (7-18) mg/dl Creatinine 1.33 (0.6-1.4) mg/dl Est Cr Clr Drug Dosing 107.5 ml/min Est GFR ( Amer) 70.7 Est GFR (Non-Af Amer) 61.0 BUN/Creatinine Ratio 12.2 (10-20) Glucose 123 H (70-99) mg/dl Calcium 8.4 L (8.5-10.1) mg/dl Magnesium 1.9 (1.8-2.4) mg/dl Total Bilirubin 0.4 (0.2-1) mg/dl AST 13 L (15-37) U/L ALT 31 (12-78) U/L Alkaline Phosphatase 69 (45-117) U/L Troponin I < 0.015 < 0.015 (0-0.045) ng/ml NT-Pro-B Natriuret Pep 1283 H (0-900) pg/ml Total Protein 6.7 (6.4-8.2) gm/dl Albumin 3.2 L (3.4-5.0) gm/dl Globulin 3.5 (2.5-4.0) gm/dl Albumin/Globulin Ratio 0.9 (0.9-2) Lipase 148 (73-393) U/L Salicylates < 1.7 L (2.8-20) mg/dl 10/04/19 10/04/19 Range/Units 16:53 16:53 WBC 7.68 (4.8-10.8) K/uL RBC 4.68 L (4.7-6.1) M/uL Hgb 14.2 (14.0-18.0) g/dL Hct 42.7 (42-52) % MCV 91.2 (80-100) fL MCH 30.3 (25-34) pg MCHC 33.3 (32-36) g/dL RDW Std Deviation 44.2 (36.4-46.3) fL RDW Coeff of Karen 13.4 (11.5-14.5) % Plt Count 226 (130-400) K/uL MPV 10.6 H (7.4-10.4) fL Immature Gran % (Auto) 0.8 % Neut % (Auto) 74.2 % Lymph % (Auto) 14.2 % Mcleod % (Auto) 8.2 % Eos % (Auto) 2.1 % Baso % (Auto) 0.5 % Immature Gran # (Auto) 0.06 H (0.00-0.02) K/uL Neut # (Auto) 5.70 (1.4-6.5) K/uL Lymph # (Auto) 1.09 L (1.2-3.4) K/uL Mcleod # (Auto) 0.63 H (0.11-0.59) K/uL Eos # (Auto) 0.16 (0-0.5) K/uL Baso # (Auto) 0.04 (0-0.2) K/uL D-Dimer 750 H* (0-500) ug/L FEU Sodium (136-145) mmol/L Potassium (3.5-5.1) mmol/L Chloride (98-107) mmol/L Carbon Dioxide (21-32) mmol/L Anion Gap (3-11) BUN (7-18) mg/dl Creatinine (0.6-1.4) mg/dl Est Cr Clr Drug Dosing ml/min Est GFR ( Amer) Est GFR (Non-Af Amer) BUN/Creatinine Ratio (10-20) Glucose (70-99) mg/dl Calcium (8.5-10.1) mg/dl Magnesium (1.8-2.4) mg/dl Total Bilirubin (0.2-1) mg/dl AST (15-37) U/L ALT (12-78) U/L Alkaline Phosphatase (45-117) U/L Troponin I (0-0.045) ng/ml NT-Pro-B Natriuret Pep (0-900) pg/ml Total Protein (6.4-8.2) gm/dl Albumin (3.4-5.0) gm/dl Globulin (2.5-4.0) gm/dl Albumin/Globulin Ratio (0.9-2) Lipase (73-393) U/L Salicylates (2.8-20) mg/dl Medications Administered Current Inpatient Medications Heparin Sodium/Dextrose (Heparin Sodium/Dextrose) 25,000 units in 500 mls @ 42 mls/hr IV .[id number] [facility]; Protocol Stop: 11/04/19 00:59 Last Admin: 10/05/19 01:41 Dose: 2,100 units/hr, 42 mls/hr Documented by: Pantoprazole Sodium 40 mg/ (Syringe) 10 mls @ 5 mls/min IV DAILY@1100 KRISHAN Stop: 11/04/19 10:59 Ioversol (Optiray 320 125ml) 119 ml IV ONCE PRN PRN Reason: Interaction Checking Stop: 10/08/19 19:22 Last Admin: 10/04/19 19:26 Dose: 119 ml Documented by: Ondansetron HCl (Zofran) 4 mg IV Q6H PRN PRN Reason: Nausea Stop: 11/04/19 00:59 Code Status & VTE Plan VTE Prophylaxis Plan VTE Prophylaxis will be ordered: Yes Supervising Physician Co-Signing Physician Notes Patient seen and examined, chart reviewed, case discussed with Dr. Ordonez and I agree with his assessment and plan as documented above. 54yo male presenting with chest discomfort, AV block, high degree noted on EKG. Exam remarkable for epigastric tenderness, patient blind Labs and images reviewed Assessment/Plan: -Trend troponin -Cardiology consultation -Remainder of plan as above Resident Activity Tracking Resident Involvement: Resident Care Provided Care Provided: Adult Hospital Medicine
[2019-10-05 04:05] LABS: Basophils # (auto) 0.05 K/uL (0-0.2); Basophils % (auto) 0.5 %; Eosinophils # (auto) 0.15 K/uL (0-0.5); Eosinophils % (auto) 1.5 %; Hematocrit (blood only) 42.6 % (42-52); Hemoglobin 14.2 g/dL (14.0-18.0); Immature Granulocytes # (auto) 0.05 K/uL (0.00-0.02); Immature Granulocytes % (auto) 0.5 %; Lymphocytes # (auto) 2.05 K/uL (1.2-3.4); Lymphocytes % (auto) 20.7 %; Mean Corpuscular Hemoglobin 30.2 pg (25-34); Mean Corpuscular Hgb Conc 33.3 g/dL (32-36); Mean Corpuscular Volume 90.6 fL (80-100); Mean Platelet Volume 10.8 fL (7.4-10.4); Monocytes % (auto) 7.1 %; Neutrophils # (auto) 6.89 K/uL (1.4-6.5); Neutrophils % (auto) 69.7 %; Platelet Count 252 K/uL (130-400); RDW Coefficient of Variation 13.5 % (11.5-14.5); RDW Standard Deviation 44.3 fL (36.4-46.3); White Blood Count 9.89 K/uL (4.8-10.8)
[2019-10-05 04:14] LABS: Partial Thromboplastin Ratio 1.5; Partial Thromboplastin Time 42.9 Seconds (21.0-31.0)
[2019-10-05] MEDS ORDERED: HEPARIN IV BOLUS 5,000 UNITS in SYRINGE 0 ML IV ONE (04:15)
[2019-10-05 04:30] LABS: BUN Creatinine Ratio 10.3 (10-20); Calcium 8.8 mg/dl (8.5-10.1); Creatinine Clr Calc Pharmacy 119.4 ml/min; Est GFR (African American) 80.9; Est GFR (Non-African American) 69.8
--- NOTE | 2019-10-05 07:01 | Billing Data ---
Date of Service October 04, 2019 Coding Level of Care Code 47600 OBS Care - Level 3
[2019-10-05 07:02] LABS: Potassium 3.9 mmol/L (3.5-5.1)
[2019-10-05 07:13] LABS: Troponin I < 0.015 ng/ml (0-0.045)
[2019-10-05 08:07] LABS: Estimated Average Glucose 143 mg/dl; Hemoglobin A1C 6.6 % (4.5-5.6)
[2019-10-05] MEDS ORDERED: PERFLUTREN LIPID MICROSPHERE (DEFINITY) IV ONE (08:10)
--- NOTE | 2019-10-05 10:14 | XCELERA ---
[id number]
[2019-10-05] MEDS: PANTOprazole 40 MG in SYRINGE 0 ML IV SCH (11:13)
[2019-10-05 11:19] LABS: Partial Thromboplastin Ratio 2.1
[2019-10-05 11:54] LABS: Partial Thromboplastin Time 58.8 Seconds (21.0-31.0)
[2019-10-05 12:01] LABS: Lyme Ab IgG w/WB Rflx Negative (Negative)
[2019-10-05 12:02] LABS: Lyme Ab IgM w/WB Rflx Negative (Negative)
[2019-10-05] MEDS ORDERED: LIDOCAINE HCL 1% 20 ML VIAL ONE ×2 (12:41→13:31)
[2019-10-05] MEDS ORDERED: BUPIVACAINE 0.25% 30 ML VIAL ONE ×2 (12:41→13:31)
[2019-10-05] MEDS ORDERED: BACITRACIN INJ 50,000 UNIT VIAL ONE (12:41)
--- NOTE | 2019-10-05 12:51 | Pre Anesthesia Assessment ---
Date of Service October 05, 2019 Pre Sedation Assessment Vital Signs Temp Pulse Pulse Resp BP BP Pulse Ox 10/05/19 11:36 37.1 C 46 L 20 164/99 H 95 10/05/19 07:00 36.9 C 52 L 24 150/78 H 95 10/05/19 04:06 155/73 H 10/05/19 02:43 37.0 C 47 L 18 175/75 H 99 10/05/19 01:57 48 L 10/05/19 01:46 147/66 H 10/05/19 00:45 36.7 C 16 197/74 H 99 10/05/19 00:41 48 L 20 129/103 H 100 10/04/19 23:57 47 L 20 161/93 H 96 10/04/19 23:15 46 L 20 171/88 H 96 10/04/19 21:30 64 20 100 10/04/19 21:03 49 L 20 100 10/04/19 21:02 50 L 20 213/77 H 98 10/04/19 20:21 45 L 14 99 10/04/19 18:51 45 L 18 154/59 H 95 10/04/19 17:28 48 L 14 171/71 H 96 10/04/19 16:23 37.3 C 53 L 16 181/68 H 96 10/04/19 16:15 53 L 25 H 181/68 H 96 Cardiovascular + regular rhythm and + bradycardic Respiratory + respiratory effort normal Pre-Sedation Airway Assessment Smoking Status: Former smoker Hx Sleep Apnea: No Hx Difficult Intubation: No Short, Thick Neck: No Thyromental Distance: > or= 3.5 Finger Breadths Oral Cavity: + WNL Mallampati Class: III ASA: ASA3 Procedure Planning Contraindications for Sedation: none Current Medications Reviewed: Yes Notes The planned sedation has been discussed with the patient. Informed Consent was obtained. I have identified the patient, determined the appropriateness of sedation and have assessed the patient immediately prior to the procedure. All medicine(s) and interventions are by my order.
[2019-10-05] MEDS ORDERED: CLINDAMYCIN PHOS 300 MG/2 ML VIAL ONE (12:55)
--- NOTE | 2019-10-05 12:56 | Cardiology Consultation ---
Date of Consultation October 05, 2019 Assessment & Plan (1) Third degree AV block: His presentation is consistent with complete heart block. His symptoms of exertional intolerance are quite common in this scenario. He has a narrow complex escape rhythm which is less common and no evidence of cardiomyopathy on echocardiography. The etiology of his heart block is unclear. Lyme titers are normal. He is not on medical therapy which should produce AV block. None the less, this is been persistent and likely occurred or developed several weeks ago. I think the appropriate treatment is a permanent pacemaker. I did describe the risks benefits and alternatives to the patient we will plan on proceeding. The History of Present Illness Reason for Consultation: Heart block Requesting Physician: José Luis Attending Physician: Lino Gutierrez History of Present Illness Patient is a 54-year-old gentleman without a known history of cardiac disease who has been experiencing symptoms of exertional dyspnea for several weeks. Patient is accustomed to mild to moderate activity on a routine basis. Generally speaking does not have limiting dyspnea or symptoms of chest discomfort with activity. However, over the past 6 weeks he states that he has had progressive worsening dyspnea with activity. He also reports a sense of chest heaviness at times. This chest heaviness however is not always associated with exertion and appears to be more positional in nature. He is not appear to have similar symptoms at rest. He has had some very mild dizziness on occasion but no history of syncope. He has not noticed any particular change in his heartbeat or heart rate. Patient does have a history of venous thromboembolism and was concerned that he had a pulmonary embolus. Based on the progressive and persistent nature of the symptoms he was prompted to go to the emergency room for evaluation. He was discovered to have complete heart block. He was evaluated for both DVT and PE. His lower extremity Doppler and chest CT were both normal. At the time my interview the patient is resting in bed comfortably. He has not report dyspnea at rest. He has not report orthopnea. He has no pleuritic chest pain. No sense of palpitation currently. Allergies Allergy/AdvReac Type Severity Reaction Status Date / Time bee venom protein (honey bee) Allergy Severe Anaphylaxis Verified 10/04/19 17:03 Penicillins Allergy Severe SEE Verified 10/04/19 17:03 COMMENT-HAPPENED A CHILD pollen extracts Allergy Severe CONGESTION, Verified 10/04/19 17:03 SOB OPIOIDS AdvReac Severe VIOLENT Uncoded 10/04/19 17:03 VOMITTING-IF SMALL DOSE SOMETIMES OK. Home Medications Home Medications Medication Instructions Recorded Confirmed Type Deni Silver Men 1 tab PO DAILY 10/04/19 10/04/19 History aspirin 975 mg PO DAILY 10/04/19 10/04/19 History fexofenadine [Corinne Allergy] 180 mg PO DAILY 10/04/19 10/04/19 History amlodipine [Norvasc] 5 mg PO QAM 30 Days #30 tab 10/06/19 Rx apixaban [Eliquis] 5 mg PO BID #60 tab 10/06/19 Rx atorvastatin [Lipitor] 10 mg PO DAILY #30 tab 10/06/19 Rx losartan 25 mg PO QAM 30 Days #30 tab 10/06/19 Rx oxycodone 5 mg PO Q4 PRN #12 tab 10/06/19 Rx Patient History Medical History Factor V Leiden Hypertension Morbid obesity Pseudotumor cerebri Tobacco abuse Social History Preferred 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 Mood and affect appeared normal. He answered all questions appropriately. Obese HEENT: Pupils are equal. Extraocular movements are intact. The sclerae are anicteric. The PA shunt port noted in the scalp Neuro: Cranial nerves intact Neck: Redundant tissue. Lungs: Clear to auscultation bilaterally. He has good air movement without use of accessory muscles. No rales wheezes or rhonchi. Cardiac: Heart demonstrates a regular rate and rhythm although slow. Normal S1 and S2. No murmurs on examination. Pulses: The patient has palpable radial pulses bilaterally that are equal in intensity Extremities: There was no evidence of hypoperfusion. There is no cyanosis or clubbing. There is no edema. Skin: I did not appreciate any rashes on examination today. Results & Data ([facility]) Vital Signs (Past 12 Hours) Vital Signs Temp Pulse Pulse Resp BP Pulse Ox 10/05/19 11:36 37.1 C 46 L 20 164/99 H 95 10/05/19 07:00 36.9 C 52 L 24 150/78 H 95 10/05/19 04:06 155/73 H 10/05/19 02:43 37.0 C 47 L 18 175/75 H 99 10/05/19 01:57 48 L 10/05/19 01:46 147/66 H Laboratory Results Abnormal Lab Results 10/04/19 10/04/19 10/04/19 16:53 16:53 16:53 WBC 7.68 RBC 4.68 L Hgb 14.2 Hct 42.7 MCV 91.2 MCH 30.3 MCHC 33.3 RDW Std Deviation 44.2 RDW Coeff of Karen 13.4 Plt Count 226 MPV 10.6 H Immature Gran % (Auto) 0.8 Neut % (Auto) 74.2 Lymph % (Auto) 14.2 Green % (Auto) 8.2 Eos % (Auto) 2.1 Baso % (Auto) 0.5 Immature Gran # (Auto) 0.06 H Neut # (Auto) 5.70 Lymph # (Auto) 1.09 L Green # (Auto) 0.63 H Eos # (Auto) 0.16 Baso # (Auto) 0.04 APTT PTT Ratio D-Dimer 750 H* Sodium 144 Potassium 4.1 Chloride 110 H Carbon Dioxide 25 Anion Gap 9.0 BUN 16 Creatinine 1.33 Est Cr Clr Drug Dosing 107.5 Est GFR ( Amer) 70.7 Est GFR (Non-Af Amer) 61.0 BUN/Creatinine Ratio 12.2 Glucose 123 H Estimat Average Glucose Hemoglobin A1c Calcium 8.4 L Magnesium 1.9 Total Bilirubin 0.4 AST 13 L ALT 31 Alkaline Phosphatase 69 Troponin I < 0.015 NT-Pro-B Natriuret Pep 1283 H Total Protein 6.7 Albumin 3.2 L Globulin 3.5 Albumin/Globulin Ratio 0.9 Triglycerides Cholesterol LDL Cholesterol, Calc VLDL Cholesterol, Calc HDL Cholesterol Cholesterol/HDL Ratio Lipase 148 Salicylates Lyme Disease IgG Ab Lyme Disease IgM Ab 10/04/19 10/04/19 10/05/19 19:50 23:40 03:46 WBC 9.89 RBC 4.70 Hgb 14.2 Hct 42.6 MCV 90.6 MCH 30.2 MCHC 33.3 RDW Std Deviation 44.3 RDW Coeff of Karen 13.5 Plt Count 252 MPV 10.8 H Immature Gran % (Auto) 0.5 Neut % (Auto) 69.7 Lymph % (Auto) 20.7 Green % (Auto) 7.1 Eos % (Auto) 1.5 Baso % (Auto) 0.5 Immature Gran # (Auto) 0.05 H Neut # (Auto) 6.89 H Lymph # (Auto) 2.05 Green # (Auto) 0.70 H Eos # (Auto) 0.15 Baso # (Auto) 0.05 APTT PTT Ratio D-Dimer Sodium Potassium Chloride Carbon Dioxide Anion Gap BUN Creatinine Est Cr Clr Drug Dosing Est GFR ( Amer) Est GFR (Non-Af Amer) BUN/Creatinine Ratio Glucose Estimat Average Glucose Hemoglobin A1c Calcium Magnesium Total Bilirubin AST ALT Alkaline Phosphatase Troponin I < 0.015 NT-Pro-B Natriuret Pep Total Protein Albumin Globulin Albumin/Globulin Ratio Triglycerides Cholesterol LDL Cholesterol, Calc VLDL Cholesterol, Calc HDL Cholesterol Cholesterol/HDL Ratio Lipase Salicylates < 1.7 L Lyme Disease IgG Ab Lyme Disease IgM Ab 10/05/19 10/05/19 10/05/19 03:46 03:46 03:46 WBC RBC Hgb Hct MCV MCH MCHC RDW Std Deviation RDW Coeff of Karen Plt Count MPV Immature Gran % (Auto) Neut % (Auto) Lymph % (Auto) Green % (Auto) Eos % (Auto) Baso % (Auto) Immature Gran # (Auto) Neut # (Auto) Lymph # (Auto) Green # (Auto) Eos # (Auto) Baso # (Auto) APTT 42.9 H PTT Ratio 1.5 D-Dimer Sodium 143 Potassium Chloride 109 H Carbon Dioxide 27 Anion Gap 7.0 BUN 12 Creatinine 1.19 Est Cr Clr Drug Dosing 119.4 Est GFR ( Amer) 80.9 Est GFR (Non-Af Amer) 69.8 BUN/Creatinine Ratio 10.3 Glucose 110 H Estimat Average Glucose 143 Hemoglobin A1c 6.6 H Calcium 8.8 Magnesium Total Bilirubin AST ALT Alkaline Phosphatase Troponin I NT-Pro-B Natriuret Pep Total Protein Albumin Globulin Albumin/Globulin Ratio Triglycerides 163 H Cholesterol 230 H LDL Cholesterol, Calc 164 VLDL Cholesterol, Calc 33 HDL Cholesterol 33 Cholesterol/HDL Ratio 7 Lipase Salicylates Lyme Disease IgG Ab Lyme Disease IgM Ab 10/05/19 10/05/19 10/05/19 05:57 10:44 10:44 WBC RBC Hgb Hct MCV MCH MCHC RDW Std Deviation RDW Coeff of Karen Plt Count MPV Immature Gran % (Auto) Neut % (Auto) Lymph % (Auto) Green % (Auto) Eos % (Auto) Baso % (Auto) Immature Gran # (Auto) Neut # (Auto) Lymph # (Auto) Green # (Auto) Eos # (Auto) Baso # (Auto) APTT 58.8 H* PTT Ratio 2.1 D-Dimer Sodium Potassium 3.9 Chloride Carbon Dioxide Anion Gap BUN Creatinine Est Cr Clr Drug Dosing Est GFR ( Amer) Est GFR (Non-Af Amer) BUN/Creatinine Ratio Glucose Estimat Average Glucose Hemoglobin A1c Calcium Magnesium Total Bilirubin AST ALT Alkaline Phosphatase Troponin I < 0.015 NT-Pro-B Natriuret Pep Total Protein Albumin Globulin Albumin/Globulin Ratio Triglycerides Cholesterol LDL Cholesterol, Calc VLDL Cholesterol, Calc HDL Cholesterol Cholesterol/HDL Ratio Lipase Salicylates Lyme Disease IgG Ab Negative Lyme Disease IgM Ab Negative Diagnostic Findings Chest x-ray obtained at time admission at reveal any acute cardiopulmonary process Lower extremity ultrasound did not reveal any acute DVT Chest CT PE protocol did not reveal any evidence of pulmonary embolus Echocardiogram demonstrated preserved LV systolic function without significant valvular heart disease or pericardial effusion. PG Care Time/CCT Total # of Minutes Spent Total Time Spent with Patient: Total time spent is greater than 50% in coordination of care (as documented) at patient's floor/unit and/or counseling patient: Coding Level of Care Code 96869 Inpt Consult Level 4 Diagnoses Third degree AV block I44.2
[2019-10-05] MEDS ORDERED: fentaNYL citrate 100 MCG/2 ML VIAL ONE ×2 (13:05→13:33)
[2019-10-05] MEDS ORDERED: MIDAZOLAM HCL 5 MG/ML 1 ML VIAL ONE ×2 (13:05→13:33)
[2019-10-05] MEDS ORDERED: CEFAZOLIN 250 MG/ML 1 GM VIAL ONE (13:06)
--- NOTE | 2019-10-05 14:14 | Electrophysiology Report ---
Date of Service October 05, 2019 Electrophysiology Procedure Electrophysiology Procedure Report Procedure performed: Implantation of dual-chamber permanent pacemaker Staff research development manager: Silver Joshi MD Indication: The patient is a 54-year-old gentleman without a known history of cardiac disease who presented with symptoms of exertional dyspnea and was discovered to be in complete heart block. He still be a good candidate for permanent pacing due to symptomatic nonreversible AV node dysfunction. Dual- chamber device was selected is currently in sinus rhythm and remains to maintain AV synchrony. Procedure in detail: The patient was informed of the risks benefits and alternatives to the intended procedure and she wished to proceed. He was taken to the electrophysiology suite in a fasting state. A preoperative antibiotic had been administered. The patient was monitored electrocardiographically throughout today's procedure and conscious sedation was administered per protocol. The left upper pectoral area is prepped and draped in usual sterile fashion. This area was anesthetized using subcutaneous administration of a xylocaine solution. An incision was made at this site and carried down to the prepectoralis fascia using sharp dissection. Electrocautery was also employed for dissection as well as for hemostasis. A device pocket was fashioned tissues above the pectoralis muscle. Subsequent to this maneuver the left axillary vein was accessed using modified Seldinger technique. Sheaths were placed over guidewires at this site and used to facilitate passage of the pacing leads to the respective chambers under fluoroscopic guidance. This included right atrial and right ventricular leads. Adequate sensing and threshold parameters were obtained prior to Active fixation of the leads to the endocardial surface. The proximal portion leads were then sutured the prepectoral fascia using nonabsorbable suture. The device pocket was irrigated with antibiotic solution. The leads were then attached to the device. The device and leads were then placed in the pocket and pocket was closed in 3 layers of absorbable suture. Steri-Strips and sterile dressing were applied. The device was tested noninvasively prior to conclusion the procedure. The patient tolerated procedure well there no immediate complications. Equipment used: New pulse generator: Pilot Plant Operator Helper [employer]. Model number: [id number] serial number [id number] Right atrial lead: Pilot Plant Operator Helper [employer]ez[employer]ater. Model number: 5076 serial number [id number] Right ventricular lead: Pilot Plant Operator Helper Medtronic. Model number: 5076 serial number [id number] Measured data: Right atrial lead: P-waves measured 5.5mV with a pacing threshold of 1.3V @ 05ms with an impedance of 821 Ohms Right ventricular lead: No intrinsic R-waves measured. Pacing threshold was 0.9V @ 0.5ms with a pacing impedance of 974 Ohms Impression: Successful implantation of Dual chamber permanent pacemaker [facility] Electrophysiology codes Pacing Procedure 1: Pacin Insert/Replace Pacer A & V PG Moderate Sedation Codes Moderate Sedation Codes Procedure 1: Sedation/Anesthesia: 01620 Mod Sedation by the same physician;Init15 Min Child Age 5 & Up Procedure 2: Sedation/Anesthesia: 29328 Mod Sedation by the same physician; Ea [id number] Minutes
--- NOTE | 2019-10-05 16:44 | Post Anesthesia Assessment ---
Date of Service October 05, 2019 Post Sedation Assessment Vital Signs Temp Pulse Pulse Resp BP BP Pulse Ox 10/05/19 16:00 36.9 C 85 16 174/109 H 90 10/05/19 15:54 36.9 C 84 16 191/120 H 3 L 10/05/19 15:45 36.6 C 85 14 174/108 H 3 L 10/05/19 14:26 90 20 165/104 H 95 10/05/19 14:20 90 20 164/100 H 95 10/05/19 11:36 37.1 C 46 L 20 164/99 H 95 10/05/19 07:00 36.9 C 52 L 24 150/78 H 95 10/05/19 04:06 155/73 H 10/05/19 02:43 37.0 C 47 L 18 175/75 H 99 10/05/19 01:57 48 L 10/05/19 01:46 147/66 H 10/05/19 00:45 36.7 C 16 197/74 H 99 10/05/19 00:41 48 L 20 129/103 H 100 10/04/19 23:57 47 L 20 161/93 H 96 10/04/19 23:15 46 L 20 171/88 H 96 10/04/19 21:30 64 20 100 10/04/19 21:03 49 L 20 100 10/04/19 21:02 50 L 20 213/77 H 98 10/04/19 20:21 45 L 14 99 10/04/19 18:51 45 L 18 154/59 H 95 10/04/19 17:28 48 L 14 171/71 H 96 Recovery Score Activity: Moves 4 extremities Respiration: Deep Breath/Cough Circulation: +/-20% PreAnes Value Consciousness: Fully Awake Oxygen Saturation: > 92% On Room Air Post Anesthesia Score: 10 Discharge Sedation Level of Care: Fast Track Phase II Post Sedation Plan On clinical assessment, the patient appears to have tolerated the sedation without complications. Patient is recovering as anticipated. Patient will continue to be monitored by nursing and may be discharged when sedation discharge criteria are met per below protocol. Upon Completions of procedure up to 15 minutes continue every 5 minute vital signs and the P.A.R. score; then discharge to a Phase I or Fast Track to Phase II per the following guidelines: * Discharge Patient to appropriate Phase II area if PAR is 8 or greater or return to pre- procedure baseline. The post - procedure orders will be as directed. * If PAR score is less than 8 or not return to pre-procedure baseline then pat ient will follow Phase I monitoring till PAR is reached for Phase II. The Phase I may be done in procedure room or may call to secure a Phase I area. * If naloxone or flumazenil are used for reversal, hold in Phase I for continued monitoring from when last reversal dose was given for a minimum of 60 minutes or longer pending the nurse and/or physician discretion of patient condition before discharge to Phase II. Please call the Sedation Physician to re-evaluate and complete post-note for discharge to Phase II area. Do NOT discharge from procedure sedation or Phase 1 until post- sedation evaluation note is complete by procedure /sedation MD Sedation Discharge Instructions to be given to the patient at discharge to home.
--- NOTE | 2019-10-05 16:55 | Electrocardiogram Report ---
Test Reason : Blood Pressure : / mmHG Vent. Rate : 048 BPM Atrial Rate : 092 BPM P-R Int : 000 ms QRS Dur : 090 ms QT Int : 456 ms P-R-T Axes : 068 044 047 degrees QTc Int : 407 ms Sinus rhythm with complete heart block Abnormal ECG When compared with ECG of 04-OCT-2019 16:20, (unconfirmed) The rhythm appears to be complete heart block Confirmed by Silver Joshi ([id number]) on 10/05/2019 4:54:58 PM Referred By: REFERRED SELF Confirmed By:Khari Joshi
[2019-10-05] MEDS ORDERED: AMLODIPINE BESYLATE 5 MG TAB PO ONE (17:00)
--- NOTE | 2019-10-05 17:02 | XRay Report ---
XR chest 1V portable HISTORY: 54 years-old Male recent pacer insertion; hypoxia; eval Pnx, etc status post placement of a left subclavian pacer COMPARISON: CTA of the chest and chest radiograph 10/04/2019 TECHNIQUE: AP view of the chest FINDINGS: Unchanged cardiomegaly. Unchanged catheter of the right neck and upper chest. Status post placement o f a left subclavian pacer with leads overlying the expected locations of the right atrium and right v entricle. Leads appear intact. No postprocedural pneumothorax identified. Pleural effusion, airspace consolidation or overt pulmonary edema. Bones appear grossly intact. IMPRESSION: Status post placement of a left subclavian pacer. No postprocedural pneumothorax. ACT 112: Negative or not required by law. The above report was generated using voice recognition software. It may contain grammatical, syntax o r spelling errors. Electronically signed by: Easton Israel M.D. 10/05/2019 5:01 PM
--- NOTE | 2019-10-05 17:05 | Electrocardiogram Report ---
Test Reason : Blood Pressure : / mmHG Vent. Rate : 052 BPM Atrial Rate : 052 BPM P-R Int : 236 ms QRS Dur : 088 ms QT Int : 496 ms P-R-T Axes : 056 033 058 degrees QTc Int : 461 ms Sinus rhythm with 2:1 AV block Confirmed by Silver Joshi ([id number]) on 10/05/2019 5:05:26 PM Referred By: REFERRED SELF Confirmed By:Khari Joshi
[2019-10-05] MEDS: CEFAZOLIN 1000MG 1,000 MG/7.5 ML SYR IV SCH (20:58)
--- NOTE | 2019-10-05 21:04 | Hospitalist Progress Note ---
Date of Service October 05, 2019 Assessment & Plan (1) Third degree AV block: Probable cause of exertional dyspnea and other cardiopulmonary symptoms. Lyme titers negative. is not on any AV sujatha agent. Dr Joshi from [facility] cardiology has seen, and plans for permanent pacemaker insertion today. Hold heparin drip in preparation for procedure. (2) Factor V Leiden: history of with multiple VTE events. should really be on lifelong anticoagulation. given morbid obesity would recommend coumadin in urmila of novel agent. will d/w patient. this will take care of cost factor as well. 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 reported feeling ok without any chest pain, orthopnea or dyspnea. main pre-hospital symptoms were that of JIMÉNEZ and a chest heaviness with extreme exertion but no pain. patient openly admits he had stopped pradaxa in the past due to cost. he does have [employer] insurance now. he has had at least 2 VTE events during his lifetime. overnight telemetry continued to show HRs in the 40s with high-grade AV block. Review of Systems Constitutional: no fever and no chills Respiratory: no cough Cardiovascular: no chest pain and no edema Gastrointestinal: no abdominal pain Physical Exam Constitutional: + morbidly obese; no acute distress and no altered mental status ENMT: external ear and nose normal, oropharynx normal Respiratory: normal respiratory effort, lungs clear to auscultation Cardiovascular: Rate/Rhythm: + bradycardic Heart Sounds: normal S1 and normal S2; no murmur Vessels: posterior tibial pulses present and dorsalis pedis pulses present; no JVD Extremities: no edema Gastrointestinal (Abdomen): normal bowel sounds, soft, nontender, no hepatosplenomegaly Results & Data Results & Data ([facility]) Vital Signs (Past 12 Hours) Vital Signs Temp Pulse Resp BP Pulse Ox 10/05/19 18:38 36.6 C 90 22 154/85 H 96 10/05/19 16:00 36.9 C 85 16 174/109 H 90 10/05/19 15:54 36.9 C 84 16 191/120 H 3 L 10/05/19 15:45 36.6 C 85 14 174/108 H 3 L 10/05/19 14:26 90 20 165/104 H 95 10/05/19 14:20 90 20 164/100 H 95 10/05/19 11:36 37.1 C 46 L 20 164/99 H 95 Laboratory Results Laboratory Results - last 24 hr 10/04/19 10/05/19 10/05/19 23:40 03:46 03:46 WBC 9.89 RBC 4.70 Hgb 14.2 Hct 42.6 MCV 90.6 MCH 30.2 MCHC 33.3 RDW Std Deviation 44.3 RDW Coeff of Karen 13.5 Plt Count 252 MPV 10.8 H Immature Gran % (Auto) 0.5 Neut % (Auto) 69.7 Lymph % (Auto) 20.7 Bracken % (Auto) 7.1 Eos % (Auto) 1.5 Baso % (Auto) 0.5 Immature Gran # (Auto) 0.05 H Neut # (Auto) 6.89 H Lymph # (Auto) 2.05 Bracken # (Auto) 0.70 H Eos # (Auto) 0.15 Baso # (Auto) 0.05 APTT PTT Ratio Sodium 143 Potassium Chloride 109 H Carbon Dioxide 27 Anion Gap 7.0 BUN 12 Creatinine 1.19 Est Cr Clr Drug Dosing 119.4 Est GFR ( Amer) 80.9 Est GFR (Non-Af Amer) 69.8 BUN/Creatinine Ratio 10.3 Glucose 110 H Estimat Average Glucose Hemoglobin A1c Calcium 8.8 Troponin I < 0.015 Triglycerides 163 H Cholesterol 230 H LDL Cholesterol, Calc 164 VLDL Cholesterol, Calc 33 HDL Cholesterol 33 Cholesterol/HDL Ratio 7 Lyme Disease IgG Ab Lyme Disease IgM Ab 10/05/19 10/05/19 10/05/19 03:46 03:46 05:57 WBC RBC Hgb Hct MCV MCH MCHC RDW Std Deviation RDW Coeff of Karen Plt Count MPV Immature Gran % (Auto) Neut % (Auto) Lymph % (Auto) Bracken % (Auto) Eos % (Auto) Baso % (Auto) Immature Gran # (Auto) Neut # (Auto) Lymph # (Auto) Bracken # (Auto) Eos # (Auto) Baso # (Auto) APTT 42.9 H PTT Ratio 1.5 Sodium Potassium 3.9 Chloride Carbon Dioxide Anion Gap BUN Creatinine Est Cr Clr Drug Dosing Est GFR ( Amer) Est GFR (Non-Af Amer) BUN/Creatinine Ratio Glucose Estimat Average Glucose 143 Hemoglobin A1c 6.6 H Calcium Troponin I < 0.015 Triglycerides Cholesterol LDL Cholesterol, Calc VLDL Cholesterol, Calc HDL Cholesterol Cholesterol/HDL Ratio Lyme Disease IgG Ab Lyme Disease IgM Ab 10/05/19 10/05/19 10:44 10:44 WBC RBC Hgb Hct MCV MCH MCHC RDW Std Deviation RDW Coeff of Karen Plt Count MPV Immature Gran % (Auto) Neut % (Auto) Lymph % (Auto) Bracken % (Auto) Eos % (Auto) Baso % (Auto) Immature Gran # (Auto) Neut # (Auto) Lymph # (Auto) Bracken # (Auto) Eos # (Auto) Baso # (Auto) APTT 58.8 H* PTT Ratio 2.1 Sodium Potassium Chloride Carbon Dioxide Anion Gap BUN Creatinine Est Cr Clr Drug Dosing Est GFR ( Amer) Est GFR (Non-Af Amer) BUN/Creatinine Ratio Glucose Estimat Average Glucose Hemoglobin A1c Calcium Troponin I Triglycerides Cholesterol LDL Cholesterol, Calc VLDL Cholesterol, Calc HDL Cholesterol Cholesterol/HDL Ratio Lyme Disease IgG Ab Negative Lyme Disease IgM Ab Negative PG Care Time/CCT Total # of Minutes Spent Total Time Spent with Patient: Total time spent is greater than 50% in coordin ation of care (as documented) at patient's floor/unit and/or counseling patient: Coding Level of Care Code 59537 Subseq Hosp Care Lvl 2 Diagnoses Third degree AV block I44.2 Factor V Leiden D68.51 Hypertension I10 Hypertension type: essential hypertension Blind in both eyes H54.3 Pseudotumor cerebri G93.2 Morbid obesity E66.01 DVT prophylaxis Z29.9 (1) Hypertension Hypertension type: essential hypertension Qualified Code(s): I10 - Essential (primary) hypertension
[2019-10-05] MEDS: OXYCODONE HCL IR 5 MG TAB (IMMEDIATE RELEASE) PO PRN (22:52)
[2019-10-06] MEDS: OXYCODONE HCL IR 5 MG TAB (IMMEDIATE RELEASE) PO PRN ×2 (04:04→11:18)
[2019-10-06] MEDS: CEFAZOLIN 1000MG 1,000 MG/7.5 ML SYR IV SCH ×2 (05:24→15:25)
--- NOTE | 2019-10-06 06:45 | XRay Report ---
XR chest 2V PA/lateral CLINICAL HISTORY: EXACT TIME ORDERED Evaluate for pneumothorax. COMPARISON STUDY: Chest CT October 03, 2017. Chest radiograph October 05, 2019. FINDINGS: There is no pneumothorax following placement of a dual lead left subclavian pacemaker. Lead tips project over the right atrial appendage and right ventricle. There is no evidence for pulmonary edema. No consolidation is identified. There is no pleural effusion. Cardiomediastinal silhouette is stable. A right internal jugular central line remains in place. IMPRESSION: No pneumothorax following placement of a dual-lead left subclavian pacemaker. ACT 112: Negative or not required by law. Electronically signed by: Marciano Bush M.D. 10/06/2019 6:43 AM
[2019-10-06 07:48] VITALS: TEMP 98.6
[2019-10-06 08:00] LABS: BUN Creatinine Ratio 8.9 (10-20); Calcium 8.8 mg/dl (8.5-10.1); Creatinine Clr Calc Pharmacy 115.5 ml/min; Est GFR (African American) 77.7; Est GFR (Non-African American) 67.1
[2019-10-06 08:12] LABS: Thyroid Stimulating Hormone 4.33 uIu/ml (0.300-4.500)
[2019-10-06] MEDS ORDERED: AMLODIPINE BESYLATE 5 MG TAB PO SCH (09:00)
--- NOTE | 2019-10-06 10:27 | Hospitalist Progress Note ---
Date of Service October 06, 2019 Assessment & Plan Admission and Anticipated Discharge Date Admission Date: October 05, 2019 Results & Data Results & Data ([facility]) Vital Signs (Past 12 Hours) Vital Signs Temp Pulse Pulse Resp BP Pulse Ox 10/06/19 07:47 37.0 C 84 17 189/93 H 95 10/06/19 07:31 83 10/06/19 03:37 37.2 C 90 20 146/89 H 96 10/06/19 00:25 85 10/06/19 00:00 37.2 C 101 H 19 146/78 H 94 PG Care Time/CCT Total # of Minutes Spent Total Time Spent with Patient: Total time spent is greater than 50% in coordination of care (as documented) at patient's floor/unit and/or counseling patient: Coding
[2019-10-06] MEDS ORDERED: LOSARTAN POTASSIUM 25 MG TAB PO SCH (10:30)
[2019-10-06] MEDS: PANTOprazole 40 MG in SYRINGE 0 ML IV SCH (11:18)
--- NOTE | 2019-10-06 11:23 | Cardiology Progress Note ---
Date of Service October 06, 2019 Assessment & Plan (1) Third degree AV block: Patient underwent successful implantation of dual-chamber permanent pacemaker yesterday. Normally functioning device without evident complication. Could safely be discharged home today with instructions to keep the wound dry and Steri-Strips intact until follow-up next week in our clinic. He should refrain from lifting left arm above the shoulder behind the neck for 6 weeks. Subjective This morning patient reports having some discomfort at the device implant site. He reports being ambulatory around the room with improvement in his breathing. Review of Systems Review of Systems: Per HPI Physical Exam Physical Exam: Evaluation of the implant site reveals intact Steri-Strips. No drainage. No erythema. No hematoma. Results & Data Vital Signs (Past 12 Hours) Vital Signs Temp Pulse Pulse Resp BP Pulse Ox 10/06/19 07:47 37.0 C 84 17 189/93 H 95 10/06/19 07:31 83 10/06/19 03:37 37.2 C 90 20 146/89 H 96 10/06/19 00:25 85 10/06/19 00:00 37.2 C 101 H 19 146/78 H 94 Laboratory Results Abnormal Lab Results 10/05/19 10/05/19 10/06/19 10:44 10:44 06:58 APTT 58.8 H* PTT Ratio 2.1 Sodium 139 Potassium Chloride 105 Carbon Dioxide 28 Anion Gap 6.0 BUN 11 Creatinine 1.23 Est Cr Clr Drug Dosing 115.5 Est GFR ( Amer) 77.7 Est GFR (Non-Af Amer) 67.1 BUN/Creatinine Ratio 8.9 L Glucose 108 H Calcium 8.8 TSH 4.330 Lyme Disease IgG Ab Negative Lyme Disease IgM Ab Negative 10/06/19 07:00 APTT PTT Ratio Sodium Potassium 3.8 Chloride Carbon Dioxide Anion Gap BUN Creatinine Est Cr Clr Drug Dosing Est GFR ( Amer) Est GFR (Non-Af Amer) BUN/Creatinine Ratio Glucose Calcium TSH Lyme Disease IgG Ab Lyme Disease IgM Ab Diagnostic Findings Chest x-ray obtained this morning revealed good lead placement without evidence of pneumothorax Complete device interrogation performed revealed normal sensing threshold parameters of both atrial ventricular leads.
[2019-10-06 11:45] VITALS: BP 168/79; PULSE 89; O2SAT 96
--- NOTE | 2019-10-06 11:49 | Discharge Summary ---
Date of Service October 06, 2019 Admission HPI Per Admitting Provider Trung Singh is a 54 y/o M with PMH significant for HTN, HLD, Factor V Leiden, Pseudotumor cerebri, and bilateral blindness; who presented to the ED following 6 weeks of exertional shortness of breath, and chest pressure. Patient was initially concerns that he had developed a PE as he had these previously when he was initially diagnosed with Factor V Leiden and he is not currently taking his anticoagulation which he stopped taking in 2017, as he could no longer afford them once he was no longer working and lost his health insurance. For the last two years he has been taking three full strength Aspirin to try to prevent development of clots. Patient has noticed that this discomfort is present most days, and has the highest intensity approximately 30 minutes after meals. No known or suspected exposure to COVID-19. Admission Exam Per Admitting Provider Constitutional: WD/WN, vitals as above Eyes: + anicteric sclerae and EOM intact bilaterally; no conjunctival abnormality and no scleral abnormality ENMT: external ear and nose normal, oropharynx normal Neck: normal visual inspection Respiratory: normal respiratory effort, lungs clear to auscultation Cardiovascular: Rate/Rhythm: + bradycardic; + abnormal rate and + abnormal rhythm Heart Sounds: normal S1 and normal S2; no gallop, no murmur and no cardiac rub Vessels: no JVD Gastrointestinal (Abdomen): Inspection/Auscultation: abdomen normal to inspection and normal bowel sounds; abdomen not distended Percussion/Palpation: + abdomen tender (epigastric) and abdomen soft; no guarding Musculoskeletal: Extremities: no cyanosis and no clubbing Skin: no rashes, warm and dry Lymphatic: no cervical or axillary lymphadenopathy Principal Diagnosis Third degree Heart Block Discharge Exam Constitutional WD/WN, vitals as above + obese; no acute distress Eyes + anicteric sclerae and PERRL ENMT external ear and nose normal, oropharynx normal Neck trachea midline, no thyromegaly Respiratory normal respiratory effort, lungs clear to auscultation Auscultation: + diminished lung sounds Cardiovascular RRR, no murmur, no edema Chest (Breasts) Additional Comments: implantable cardiac devide left chest wall with steri- strips in place. c/d/i no erythema or hematoma Gastrointestinal (Abdomen) normal bowel sounds, soft, nontender, no hepatosplenomegaly Musculoskeletal no cyanosis or clubbing, extremities motor strength 5/5 Skin no rashes, warm and dry Neurologic patellar DTR's 2+ bilat, sensation intact Psychiatric A+Ox3, euthymic affect Lymphatic no cervical or axillary lymphadenopathy Discharge Data Allergies Allergy/AdvReac Type Severity Reaction Status Date / Time bee venom protein (honey bee) Allergy Severe Anaphylaxis Verified 10/04/19 17:03 Penicillins Allergy Severe SEE Verified 10/04/19 17:03 COMMENT-HAPPENED A CHILD pollen extracts Allergy Severe CONGESTION, Verified 10/04/19 17:03 SOB OPIOIDS AdvReac Severe VIOLENT Uncoded 10/04/19 17:03 VOMITTING-IF SMALL DOSE SOMETIMES OK. Consultations 10/04/19 23:40 ED Decision to Admit Stat 10/05/19 02:25 Consult Cardiology Routine Procedures Performed Operation Date: 10/05/19 13:00 Actual Procedures p Pacer with A/V Leads (Dual) - Eric Joshi MD Ordered Studies 10/04/19 16:42 US venous doppler LE LT Stat 10/04/19 17:39 CT angio chest PE protocol Stat 10/05/19 12:54 CL Cath Imgs for PACS use only Routine CXR 10/05 Chest 2 View Hospital Course (1) Third degree AV block: Probable cause of exertional dyspnea and other cardiopulmonary symptoms. Lyme titers negative. S/p dual chamber pacemaker on 10/[address] Joshi Chest 2 view with acceptable placement Follow up with cardiology in one week as outpatient (2) Factor V Leiden: history of with multiple VTE events, previously on Pradaxa. Per patient, hematemesis and bleeding with coumadin in the past. 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 CXR negative. By report, patient testing for sleep apnea approx 10 years ago but had been unable to tolerate CPAP -- will defer further conversation/nasal pillows to PCP outpatient next week as patient should really be on CPAP. (8) Elevated hemoglobin A1c: A1c 6.6 Diet/exercise encouraged Glucose on morning BMP 108 Would recommend repeat in 3 months vs initiation of metformin at appointment with PCP next week. Due to past issues with non-compliance, metformin not initiated at this current hospitalization. Total Time Total Time Spent Total Time Spent (In Minutes): 60 Discharge Plan Discharge Items Patient Disposition: Home - Self-Care Reason For Visit: COMPLETE HEART BLOCK Discharge Diagnosis: Complete Heart Block Condition on Discharge: Good Health Concerns: You have been hospitalized for an urgent problem which required surgery. During your stay at [facility], we have made an effort to correct the problem that brought you to the hospital while keeping you as comfortable as possible. Surgery and medications were used to bring your condition under control and your discharge instructions will include directions for any medications you should take after leaving the hospital. Please make sure to follow the advice of your surgeon regarding follow up with the surgeon and with your primary care provider. Activity: Per Instructions section Activity Comment: Keep wound dry in Steri-Strips intact until follow-up next week. No liftin Lifting: No more than 5 pounds Bathing: Keep incision dry Non-emergency contact: Primary Care Provider and Feather Edger Call non-emergency contact if: you have any medication questions, your symptoms worsen and your pain is concerning for you Follow-up/Referrals: Bob Casiano, DO [Physician] - 10/14/19 11:00 am (Please, follow up at [facility] Office with Dr. Bob Casiano on SaturdayOctober 13 at 11:20 am (arrive 11:00 am). *Dr. Casiano will be your new primary care provider. The office is located at [address] [place] [address] in [place]. This is across the road from the [employer] exit/entrance. If you need to change this appointment, call the office at [phone]. DUE TO THE PANDEMIC, CALL THE OFFICE WHEN YOU GET TO THEIR PARKING LOT AND LET THEM KNOW YOU HAVE ARRIVED. THEY WILL CALL YOU BACK WHEN ITS YOUR TURN TO SEE THE DOCTOR. THIS KEEPS THE WAITING ROOMS FROM GETTING CROWDED. ) Eric Joshi MD [Physician] - Diet: Heart Healthy [facility] Attending Provider Instructions: You have been hospitalized for a complete heart block, which is a problem with the electrical pathway of the heart. The treatment is with a pacemaker, which you had inserted by Dr. Joshi. You are to follow up with his nurse in the next week for a check up. Please keep this appointment. You have been sent a short prescription of pain medication to take for breakthrough pain. You may use tylenol for mild pain, but make sure not to exceeed 3,000mg in a 24 hour period of time. You were also found to have elevated cholesterol and triglycerides. For this reason, you are being started on a lipid lowering medication, called Lipitor, at the lowest dose. This is to be taken once daily, and is best to take at night to prevent muscle aches/cramping. You are also being discharged on blood pressure medication, which you had previously been on in the past. This medication is a losartan 25mg by mouth once daily and Norvasc 5mg by mouth once daily. For your Factor V Leiden, which increases your risk of clotting, you are being sent home with a prescription for Eliquis. You have been provided a coupon for the first month free, but after that is was checked to be approximately 141$ per month. You will have follow up with Dr. Elizondo at our coagulation clinic. If Eliquis is not working for you, she may be able to come up with the best solution in light of your previous bad experience with coumadin. --->START THIS TOMORROW !!! (10/06) to prevent developing a hematoma at your surgical site. STOP YOUR ASPIRIN! Your A1c (measurement of your average blood glucose) was found to be elevated a 6.6. "Pre-diabetes" is termed for levels 5.7-6.5, so this is technically termed diabetes. Diet and exercise are strongly encouraged, and you may benefit from initiation of medication such as metformin to help bring these levels down if still elevated. Please discuss this with Dr. Casiano at your PCP appointment on October 13 to establish care locally. This appointment has already been set up for you. Please return to the emergency room if you experience any chest pain, worsening shortness of breath, or for any other symptoms that are concerning for you. It has been a pleasure being apart of the medical team providing for you during your hospitalization. Take care! Addtl Analyst Business Analysis Provider Instructions: ACTIVITY RECOMMENDATIONS: * Do not raise affected arm over head for 2 weeks. SPECIAL CARE INSTRUCTIONS: * If bleeding occurs, apply direct pressure to area for 5 minutes. * Call your doctor if you have severe pain, fever, drainage or bleeding at site. * Keep dressing on and dry for 48 hours then remove. * Keep any scheduled doctor's appointment. * Implant Card - hand held device with website information given. SKIN IRRITATION: * You may experience some redness and/or swelling in the area where radiation was administered. If any skin irritation occurs, please contact your family physician. FOLLOW UP VISIT: Keep any scheduled doctor appointments. Pending Studies at Discharge: No Stand-Alone Forms: [facility] Medications and DC Order Prescriptions: New oxycodone 5 mg Tablet 5 mg PO Q4 PRN (Reason: pain) Qty: 12 RF: 0 amlodipine [Norvasc] 5 mg Tablet 5 mg PO QAM 30 Days Qty: 30 RF: 0 losartan 25 mg Tablet 25 mg PO QAM 30 Days Qty: 30 RF: 0 Eliquis 5 mg tablet 5 mg PO BID Qty: 60 RF: 0 atorvastatin [Lipitor] 10 mg tablet 10 mg PO DAILY Qty: 30 RF: 0 Continued fexofenadine [Corinne Allergy] 180 mg Tablet 180 mg PO DAILY RF: 0 Centrum Silver Men 300-600-300 mcg Tablet 1 tab PO DAILY RF: 0 Discontinued aspirin 325 mg Tablet 975 mg PO DAILY RF: 0 Discharge Orders: Discharge Order (Routine); Ordered 10/06/19 Ordered By: Ruth Valdovinos/Other Patient Handouts: 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 I agree w/ the blanton components of her discharge documentation. 54yo male with h/o pseudotumor cerebri with resulting blindness, Factor V Leiden with prior VTE events, and morbid obesity who presented w/ several weeks of progressive dyspnea. Found to be in complete heart block upon presentation to [facility]. Seen by [place] Victor M Joshi[place] [facility] [place], who ultimately placed a permanent pacemaker. Post-op he remained stable and felt better without any further dyspnea. Post-pacer cxr w/o pneumothorax. Patient was recommended to initiate coumadin for anticoagulation but was adamantly opposed to such. Instead he wished to take a novel agent despite its high cost. He was discharged on apixaban 5mg BID. Discharge exam: gen - NAD, morbidly obese neck - no JVD heart - RRR, s1 s2 chest - pacer site left upper chest clean, dry, no hematoma lungs - CTA b/l abd - soft NT ext - no edema Pt will f/u with Dr Joshi in the EP clinic within 1 week of discharge. Lino Gutierrez MD Coding Level of Care Code D/C Day Management >30 mins Diagnoses Third degree AV block I44.2 Factor V Leiden D68.51 Hypertension I10 Hypertension type: essential hypertension Blind in both eyes H54.3 Pseudotumor cerebri G93.2 Morbid obesity E66.01 DVT prophylaxis Z29.9 Elevated hemoglobin A1c R73.09
[2019-10-07] MEDS ORDERED: PANTOprazole 40 MG TAB PO SCH (09:00)
== END 2019-10-06 15:53 | disposition home or self-care (01) | DRG 243 ==
LOC: ED 16:11 → 2N 16:11 → SUATTDRO 10-05 00:01 → 2N 10-05 00:42 → 2S 10-05 02:43